=== PATIENT | male | born 1935 | race Caucasian/White ===

== ENCOUNTER 2016-08-18 06:15 | Day surgery (SDC) | payer MEDICARE, BC ==
[2016-08-13 09:41] VITALS: BMI 30.9
[~2016-08-18 06:15] MED LIST: SODIUM CHLORIDE 0.9% 1,000 ML in EMPTY BAG 1 BAG IV ONE
[2016-08-18 07:15] LABS: Basophils % (A) 1 %; CH 25.5; CHCM 31.2; Eosinophils # (A) 0.1 k/uL (0-0.7); Eosinophils % (A) 2 %; HCT 31.7 % (39.0-53.0); HDW 3.61; Hypochromasia Marked; Luc # (Auto) 0.15; Luc % (Auto) 3; Lymphocytes # (A) 1.3 k/uL (1.0-4.8); Lymphocytes % (A) 28 %; MCHC 30.4 g/dL (31.0-37.0); MCV 82.2 fL (80.0-100.0); Mean Platelet Volume 7.4; Monocytes # (A) 0.4 k/uL (0-1.0); Monocytes % (A) 8 %; Neutrophils # (A) 2.6 k/uL (1.3-7.7); Neutrophils % (A) 57 %; Poikilocytosis Slight; RBC 3.85 m/uL (4.30-5.90); RDW 15.7 % (11.5-15.5); WBC 4.6 k/uL (3.8-10.6); WBC (Perox) 4.45
[2016-08-18 07:19] LABS: HGB 9.6 gm/dL (13.0-17.5)
[2016-08-18 07:23] LABS: Calcium 9.3 mg/dL (8.4-10.2); Potassium 4.2 mmol/L (3.5-5.1)
[2016-08-18] MEDS ORDERED: MIDAZOLAM 2 MG/2 ML VIAL IVP ONE (08:09)
[2016-08-18] MEDS ORDERED: LIDOCAINE 2% INJ 20 MG/ML SQ ONE (08:17)
[2016-08-18] MEDS ORDERED: HEPARIN SODIUM 1,000 UNIT/ML VIAL IV ONE (08:21)
[2016-08-18] MEDS: MIDAZOLAM 2 MG/2 ML VIAL IVP ONE ×2 (08:26→11:09)
[2016-08-18] MEDS ORDERED: HYDROmorphone 2 MG/ML 1 ML SYRINGE IVP ONE (08:37)
[2016-08-18] MEDS: NITROGLYCERIN 1000MCG/10ML SYRINGE INTRAARTER ONE ×3 (09:28→11:10)
[2016-08-18] MEDS: niCARdipine Syringe (1,000 mcg/10 mL) INTRACORON ONE ×2 (10:30→11:10)
[2016-08-18] MEDS ORDERED: CLOPIDOGREL 75 MG TAB PO ONE (11:20)
[2016-08-18] MEDS ORDERED: IODIXANOL 320 MG/ML 100 ML INTRAARTER ONE (11:20)
[2016-08-18] MEDS ORDERED: SODIUM CHLORIDE 0.9% 1,000 ML IV SCH (11:30)
--- NOTE | 2016-08-18 12:56 | IR ---
Fluoroscopy HISTORY: Pain 68.5 minutes fluoroscopy time supplied to the referring clinician. 829 intraoperative C-arm images d ocument the procedure. See dictated report from cardiology.
[2016-08-18 16:57] VITALS: RESP 18
[2016-08-18] MEDS ORDERED: HYDROmorphone 1 MG/ML 1 ML SYRINGE IVP PRN ×2 (18:00→20:09)
[2016-08-18] MEDS: GABAPENTIN 300 MG CAP PO SCH (20:46)
[2016-08-18] MEDS: FAMOTIDINE 20 MG TAB PO SCH (20:46)
[2016-08-18] MEDS ORDERED: ASPIRIN 325 MG TAB PO SCH (21:00)
[2016-08-18] MEDS ORDERED: HYDROcodone/APAP 7.5-325MG 1 EACH TAB PO SCH (21:00)
--- NOTE | 2016-08-18 21:57 | PCN ---
DATE OF PROCEDURE: 08/18/2016 Performing physician: Alex Belcher M.D., table attendant. PROCEDURE PERFORMED: 1. Selective right superficial femoral artery angiogram. 2. Selective right popliteal angiogram. 3. 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 4. Attempted atherectomy of the right SFA artery. 5. Balloon angioplasty of the right superficial femoral artery. 6. Successful stenting of the right SFA using 5.5 x 120 and 6.0 x 100 mm Supera stent with a good angiographic results. 7. Intravascular ultrasound (IVUS) of the right SFA. INDICATION: This is a pleasant 81-year-old gentleman who was experiencing right leg discomfort consistent with intermittent claudication. He underwent a peripheral angiogram a few weeks ago and that showed occluded distal right SFA. Maximize medical treatment was recommended and the patient continues to have leg discomfort in spite of that. Finally, I decided to pursue with an intervention on the right SFA. Approach: Right popliteal artery. COMPLICATIONS: None. Level of sedation: Moderate. PROCEDURE DESCRIPTION: After obtaining an informed consent, the patient was brought to the cardiac operations label clerk. The patient was put in prone position. The right popliteal artery was accessed using micropuncture technique. After that, I did a place a 4 Wolof sheath in the right popliteal artery and subsequently and immediately anticoagulation was initiated using heparin and the patient was given 10,000 units of heparin IV. After that, I did selective right popliteal and right SFA angiogram. I attempted crossing the chronic total occlusion of the right SFA using 014 Astato wire and 018 connect wire and I was unable in spite of using back up support of 014 and 018 QuickCross catheters. After that, I decided to use the Cartwright re-entry device. The Cartwright re-entry device was loaded over the 014 Astato wire where I was able to tell where I went from intimal and then I was able to reenter the lumen again using the needle of the Cartwright device. After that, I was able to advance the wire all the way into the right SFA in the proximal portion and I did selective right SFA angiogram to prove that I was in the true lumen. Subsequently, before balloon angioplasty. I tried to advance the TurboHawk hock atherectomy device but the device will not cross the tight lesion in the right SFA just distal to the distal cap. At that point, I decided to do balloon angioplasty on that lesion, so I did advance 20 x 14 mm balloon. Then I tried 4 mm balloon and I did balloon angioplasty with both balloons. After that, I tried to advance the atherectomy device again and I was unable. At that point, I did balloon the right SFA using 5.0 x 150 mm drug-coated balloon, where the balloon was inflated under its nominal pressure for 3 minutes. The following angiogram showed good angiographic results, but I was ( ) dissection in the proximal and distal portion of the DIRECTOR DATA PROCESSING. At that point, I did intravascular ultrasound (IVUS) of the right SFA which showed dissection, which was major dissection involving the proximal and distal cap of the right SFA. At that point, I decided to cover that with a stent. I deployed 2 Supera stents, the first one was 5.5 x 120 and the second one was 6.0 x 200 mm stents. Finally, I did balloon using 6.0 x 200 mm balloon which was inflated under its nominal pressure. The following angiogram showed residual stenosis about 20% to 30% in the right SFA with a good flow and good angiographic results. The procedure was completed without any complication. POSTPROCEDURE MANAGEMENT: 1. Dual antiplatelet therapy. 2. Risk factor modifications. 3. ( ) Doppler. 4. Follow up with the patient.
--- NOTE | 2016-08-18 22:19 | LTR ---
August 18, 2016 RE: Yolandeoren Abdulkadir Airam Dear Yobani, Mr. Abdulkadir Burnette underwent successful balloon angioplasty and stenting of the right superficial femoral artery which was 100% occluded, with good angiographic results and without any complication. I want to thank you for allowing me to participate in his care. Please do not hesitate to if you have any questions or concerns. Sincerely, CARLOS WELLS MD
[2016-08-19 06:36] LABS: Basophils % (A) 0 %; CH 24.8; CHCM 29.8; Eosinophils # (A) 0.1 k/uL (0-0.7); Eosinophils % (A) 1 %; HCT 26.9 % (39.0-53.0); HDW 3.57; Hypochromasia Marked; Luc % (Auto) 4; Lymphocytes # (A) 1.4 k/uL (1.0-4.8); Lymphocytes % (A) 27 %; MCHC 29.8 g/dL (31.0-37.0); MCV 83.9 fL (80.0-100.0); Mean Platelet Volume 7.1; Monocytes # (A) 0.5 k/uL (0-1.0); Monocytes % (A) 9 %; Neutrophils # (A) 3.1 k/uL (1.3-7.7); Neutrophils % (A) 59 %; Poikilocytosis Slight; RDW 15.4 % (11.5-15.5); WBC 5.3 k/uL (3.8-10.6); WBC (Perox) 5.45
[2016-08-19 06:47] LABS: Calcium 8.8 mg/dL (8.4-10.2); Potassium 4.3 mmol/L (3.5-5.1)
[2016-08-19] MEDS ORDERED: PANTOPRAZOLE 40 MG TABLET PO SCH (07:30)
[2016-08-19] MEDS: FAMOTIDINE 20 MG TAB PO SCH (08:13)
[2016-08-19] MEDS: GABAPENTIN 300 MG CAP PO SCH (08:13)
[2016-08-19 08:22] VITALS: BP 126/58; PULSE 66; TEMP 96.1
[2016-08-19] MEDS ORDERED: ATORVASTATIN 20 MG TAB PO SCH (09:00)
[2016-08-19] MEDS ORDERED: ATENOLOL 50 MG TAB PO SCH (09:00)
[2016-08-19] MEDS ORDERED: TAMSULOSIN 0.4 MG CAP.ER.24H PO SCH ×2 (09:00)
[2016-08-19] MEDS ORDERED: CLOPIDOGREL 75 MG TAB PO SCH (09:00)
[2016-08-19] MEDS ORDERED: FUROSEMIDE 40 MG TAB PO SCH (09:00)
[2016-08-19] MEDS ORDERED: CALCIUM CARBONATE 500 MG CHEWABLE PO SCH (09:00)
--- NOTE | 2016-08-19 09:01 | DS ---
DATE OF ADMISSION: 08/18/2016 DATE OF DISCHARGE: 08/19/2016 BRIEF HISTORY: This is a pleasant 81-year-old gentleman who was admitted to the hospital yesterday and underwent successful crossing chronic total occlusion of the distal right SFA from a popliteal access. Last night he had hematoma in the right ( ) which was reduced by compression. He has a good right dorsalis pedis pulse. There is no hematoma at the site of the right popliteal artery where was the access site. The patient is going to be discharged home on dual antiplatelet therapy and I will follow up with the patient next week in the office.
[2016-08-19] MEDS ORDERED: CHOLECALCIFEROL 1,000 UNIT TAB PO SCH (12:00)
[2016-08-19] MEDS ORDERED: CYANOCOBALAMIN 500 MCG TAB PO SCH (12:00)
== END 2016-08-19 10:56 | disposition home or self-care (01) ==
LOC: CATHCVL 06:15 → 6SEL 11:15 → CATHCVL 08-19 10:56
PROVIDERS: ATTEND Internal Medicine Interventional Cardiology
DX: I70.211 Atherosclerosis of native arteries of extremities with intermittent claudication, right leg (principal); I70.92 Chronic total occlusion of artery of the extremities; I77.77 Dissection of artery of lower extremity; E78.5 Hyperlipidemia, unspecified; Z87.891 Personal history of nicotine dependence; Z79.82 Long term (current) use of aspirin; Z79.899 Other long term (current) drug therapy
CPT/HCPCS: 37226; 37252; 99157 ×11; 99156; 85347; 80048 ×2; 85025 ×2; C1894 ×2; C1769 ×9; C1725 ×3; C1887; C1714; C1753; C1876; C2623; J2001; J2250; J1170 ×2; Q9967; J1644

== ENCOUNTER 2016-11-09 20:52 | Emergency (ER) | payer MEDICARE, BC ==
[2016-11-09 21:20] VITALS: BP 105/55; PULSE 62; RESP 18; TEMP 97.7
--- NOTE | 2016-11-09 23:48 | ED ---
General Adult HPI - General Chief complaint: Recheck/Abnormal Lab/Rx Stated complaint: Abnomal Labs Time Seen by Provider: 11/09/16 23:19 Source: patient Mode of arrival: wheelchair Limitations: no limitations - History of Present Illness Initial comments: This patient is an 81-year-old man who has been having exertional dyspnea when he walks around his home. He has seen his physician in clinic. He reportedly had some lab tests sent and he states that the tests showed that he had a " blood clot in his heart." He was sent to the hospital today to have some imaging and then was told to come to the emergency department. The patient was unsure on the exact details of the tests that were performed. The patient states that he is currently not having chest pain nor is she having any dyspnea when he is at rest. He is not having fever or chills, cough, diaphoresis, nausea or vomiting. The patient does have some chronic intermittent leg edema greater on the left and right but he has had a surgery on the left. -: days(s) - Related Data Home Medications Medication Instructions Recorded Confirmed Atenolol [Tenormin] 50 mg PO DAILY 03/26/16 11/10/16 Calcium Carbonate [Calcium] 600 mg PO DAILY 03/26/16 11/10/16 Cyanocobalamin (Vitamin B-12) 2,000 mcg PO DAILY 03/26/16 11/10/16 [Vitamin B-12] Gabapentin [Neurontin] 600 mg PO BID 03/26/16 11/10/16 Lidocaine 5% Patch [Lidoderm 5% 1 patch TOPICAL DAILY 03/26/16 11/10/16 Patch] Multivitamin [Men's Multi-Vitamin] 1 tab PO DAILY 03/26/16 11/10/16 Silodosin [Rapaflo] 8 mg PO DAILY 03/26/16 11/10/16 Ammonium Lactate Lotion 1 applic TOPICAL DIRECTED PRN 08/13/16 11/10/16 [Lac-Hydrin 12% Lotion] Cholecalciferol [Vitamin D3] 1,000 unit PO DAILY 08/13/16 11/10/16 Furosemide [Lasix] 40 mg PO BID 08/13/16 11/10/16 HYDROcodone/APAP 7.5-325MG [[place] 1 tab PO BID 08/13/16 11/10/16 7.5-325] Ranitidine HCl 150 mg PO BID 08/13/16 11/10/16 Alfuzosin HCl [Uroxatral ER] 10 mg PO DAILY 11/09/16 11/10/16 Atorvastatin [Lipitor] 40 mg PO DAILY 11/09/16 11/10/16 Omeprazole [PriLOSEC] 40 mg PO DAILY 11/09/16 11/10/16 Sodium Chloride [[place]] 1 spray EA NOSTRIL DAILY PRN 11/09/16 11/10/16 Previous Rx's Medication Instructions Recorded Clopidogrel [Plavix] 75 mg PO DAILY #90 tab 08/19/16 Aspirin 81 mg PO DAILY #1 chewable 11/12/16 Allergies Allergy/AdvReac Type Severity Reaction Status Date / Time No Known Allergies Allergy Verified 11/10/16 14:53 Review of Systems ROS Statement: Those systems with pertinent positive or pertinent negative responses have been documented in the HPI. ROS Other: All systems not noted in ROS Statement are negative. Constitutional: Denies: fever, chills Respiratory: Denies: cough, dyspnea, hemoptysis Cardiovascular: Reports: dyspnea on exertion, edema. Denies: chest pain, palpitations, orthopnea, syncope Gastrointestinal: Denies: abdominal pain, vomiting, diarrhea Genitourinary: Denies: dysuria, hematuria Musculoskeletal: Denies: back pain Skin: Denies: rash Neurological: Denies: headache, weakness, numbness Past Medical History Past Medical History: Coronary Artery Disease (CAD), Eye Disorder, Hyperlipidemia, Osteoarthritis (OA), Renal Disease, Skin Disorder, Vascular Disorder Additional Past Medical History / Comment(s): HX KIDNEY STONES. HX CECILIA GLAUCOMA. EDEMA leftLEG, FEET; ITCHING, PAIN IN LEGS, LT WORSE; HX NT IN LEGS/ FEET. PVD/PAD History of Any Multi-Drug Resistant Organisms: None Reported Past Surgical History: Coronary Bypass/CABG, Heart Catheterization With Stent, Hernia Repair, Orthopedic Surgery Additional Past Surgical History / Comment(s): 08/18/16 Stents x 2 to R SFA. Other surgical hx: QUAD CABG 1998. PTCA W/ STENTS; PTBA W/ STENTS - X7. KIDNEY STONE PROC X3. RT SHOULDER SURG. LASER SURG CECILIA EYES. NASAL FX SURG. Past Anesthesia/Blood Transfusion Reactions: No Reported Reaction Date of Last Stent Placement:: 2000 Past Psychological History: No Psychological Hx Reported Additional Psychological History / Comment(s): Pt mostly lives alone. Occasionally his lady friend stays with him. He uses no assistive devices. He drives. Smoking Status: Former smoker Past Alcohol Use History: None Reported Additional Past Alcohol Use History / Comment(s): SMOKED 40 YEARS, 1 PPD AVG, QUIT 1978 Past Drug Use History: None Reported - Past Family History Mother Family Medical History: No Reported History Additional Family Medical History / Comment(s): Mother was healthy and lived to be 94 yrs old. General Exam Limitations: no limitations General appearance: alert, in no apparent distress Head exam: Present: atraumatic, normocephalic Eye exam: Present: normal appearance. Absent: scleral icterus, conjunctival injection Neck exam: Present: normal inspection Extremities exam: Present: normal inspection, normal capillary refill, pedal edema (Patient has mild left pretibial edema.). Absent: calf tenderness Neurological exam: Present: alert Skin exam: Present: warm, dry, intact, normal color. Absent: rash Course Vital Signs 11/09/16 21:13 Temperature 97.7 F Pulse Rate 62 Respiratory 18 Rate Blood Pressure 105/55 O2 Sat by Pulse 100 Oximetry Medical Decision Making - Medical Decision Making Patient is an 81-year-old man who was here in the hospital to have imaging for what he believes was a "blood clot in his heart." The patient has become quite frustrated after she waited at the hospital number of hours. He would not agree to the full history and physical exam. I could not auscultate his heart or lungs. I attempted to piece together the patient's medical problem. It appears to me that he had seen his physician for the dyspnea on exertion, and probably had lab tests that showed an elevated d-dimer. Today at the hospital he had some renal function tests that showed a slightly elevated creatinine. There was also an order for a CT angio to rule out PE, this order was subsequent canceling the patient appears to have had a ventilation perfusion study. I have found the result of that and it was read as low probability. I did explain all this patient and suggested that we perform the full history and physical as well as some tests to further study dyspnea on exertion but the patient states that he is just going home and will follow up with his physician tomorrow. He understands that there is risk of disability or associated with this. He did agree to sign AMA. Disposition Clinical Impression: Dyspnea on exertion Disposition: Left Against Medical Advice Condition: Undetermined Referrals: Yobani Gage MD [Primary Care Provider] - 1-2 days
== END 2016-11-10 00:01 | disposition left against medical advice (07) ==
LOC: EC 20:52
DX: R06.00 Dyspnea, unspecified (principal); R60.0 Localized edema; E78.5 Hyperlipidemia, unspecified; M19.90 Unspecified osteoarthritis, unspecified site; L98.9 Disorder of the skin and subcutaneous tissue, unspecified; Z87.891 Personal history of nicotine dependence; Z79.82 Long term (current) use of aspirin; Z79.891 Long term (current) use of opiate analgesic; Z79.899 Other long term (current) drug therapy; Z87.448 Personal history of other diseases of urinary system
CPT/HCPCS: 99283

== ENCOUNTER → 2016-11-09 | Outpatient (CLI) | payer MEDICARE, BC ==
--- NOTE | 2016-11-09 20:51 | NM ---
EXAMINATION TYPE: NM pul vent and perfuse DATE OF EXAM: 11/09/2016 8:47 PM COMPARISON: NONE HISTORY: Shortness of breath TECHNIQUE: Utilizing inhalation of 71.2 mCi Tc 99m DTPA aerosol and intravenous injection of 5.3 mCi of Tc 99m MAA, ventilation and perfusion images are acquired post injection in multiple projections. FINDINGS: Normal radiotracer distribution is noted in the lungs. There is no evidence of mismatched defects. IMPRESSION: Very low probability for pulmonary embolism.
== END | disposition home or self-care (01) ==
LOC: RADCTMAIN 18:02
PROVIDERS: ATTEND Family Medicine
DX: R79.1 Abnormal coagulation profile (principal)
CPT/HCPCS: 82565; 84520; 78582; A9540; A9567

== ENCOUNTER 2016-11-10 12:07 | Inpatient (IN) | payer MEDICARE, BC ==
--- NOTE | 2016-11-10 12:25 | ED ---
General Adult HPI - General Chief complaint: Recheck/Abnormal Lab/Rx Stated complaint: Abnormal Labs Time Seen by Provider: 11/10/16 12:09 Source: patient, RN notes reviewed, old records reviewed Mode of arrival: ambulatory Limitations: no limitations - History of Present Illness Initial comments: This is a 79-year-old male ER for evaluation of weakness, weakness and decreased activity level, shortness of breath with exertion. Patient states the symptoms going on for some time. Seen by his family doctor and had outpatient lab tests of ER for evaluation. Patient was tested for elevated d- dimer and PE which was negative, patient was also found to be severely anemic, patient denies blood in his stool, denies ever having an issue of similar complaint before the patient denies chest patient was of breath abdominal pain - Related Data Home Medications Medication Instructions Recorded Confirmed Aspirin 325 mg PO HS 03/26/16 11/10/16 Atenolol [Tenormin] 50 mg PO DAILY 03/26/16 11/10/16 Calcium Carbonate [Calcium] 600 mg PO DAILY 03/26/16 11/10/16 Cyanocobalamin (Vitamin B-12) 2,000 mcg PO DAILY 03/26/16 11/10/16 [Vitamin B-12] Gabapentin [Neurontin] 600 mg PO BID 03/26/16 11/10/16 Lidocaine 5% Patch [Lidoderm 5% 1 patch TOPICAL DAILY 03/26/16 11/10/16 Patch] Multivitamin [Men's Multi-Vitamin] 1 tab PO DAILY 03/26/16 11/10/16 Silodosin [Rapaflo] 8 mg PO DAILY 03/26/16 11/10/16 Ammonium Lactate Lotion 1 applic TOPICAL DIRECTED PRN 08/13/16 11/10/16 [Lac-Hydrin 12% Lotion] Cholecalciferol [Vitamin D3] 1,000 unit PO DAILY 08/13/16 11/10/16 Furosemide [Lasix] 40 mg PO BID 08/13/16 11/10/16 HYDROcodone/APAP 7.5-325MG [[place] 1 tab PO BID 08/13/16 11/10/16 7.5-325] Ranitidine HCl 150 mg PO BID 08/13/16 11/10/16 Alfuzosin HCl [Uroxatral ER] 10 mg PO DAILY 11/09/16 11/10/16 Atorvastatin [Lipitor] 40 mg PO DAILY 11/09/16 11/10/16 Omeprazole [PriLOSEC] 40 mg PO DAILY 11/09/16 11/10/16 Sodium Chloride [[place]] 1 spray EA NOSTRIL DAILY PRN 11/09/16 11/10/16 Previous Rx's Medication Instructions Recorded Clopidogrel [Plavix] 75 mg PO DAILY #90 tab 08/19/16 Allergies Allergy/AdvReac Type Severity Reaction Status Date / Time No Known Allergies Allergy Verified 11/10/16 14:53 Review of Systems ROS Statement: Those systems with pertinent positive or pertinent negative responses have been documented in the HPI. ROS Other: All systems not noted in ROS Statement are negative. Past Medical History Past Medical History: Coronary Artery Disease (CAD), Eye Disorder, Hyperlipidemia, Osteoarthritis (OA), Renal Disease, Skin Disorder, Vascular Disorder Additional Past Medical History / Comment(s): HX KIDNEY STONES. HX CECILIA GLAUCOMA. EDEMA leftLEG, FEET; ITCHING, PAIN IN LEGS, LT WORSE; HX NT IN LEGS/ FEET. PVD/PAD History of Any Multi-Drug Resistant Organisms: None Reported Past Surgical History: Coronary Bypass/CABG, Heart Catheterization With Stent, Hernia Repair, Orthopedic Surgery Additional Past Surgical History / Comment(s): 08/18/16 Stents x 2 to R SFA. Other surgical hx: QUAD CABG 1998. PTCA W/ STENTS; PTBA W/ STENTS - X7. KIDNEY STONE PROC X3. RT SHOULDER SURG. LASER SURG CECILIA EYES. NASAL FX SURG. Past Anesthesia/Blood Transfusion Reactions: No Reported Reaction Date of Last Stent Placement:: 2000 Past Psychological History: No Psychological Hx Reported Additional Psychological History / Comment(s): Pt mostly lives alone. Occasionally his lady friend stays with him. He uses no assistive devices. He drives. Smoking Status: Former smoker Past Alcohol Use History: None Reported Additional Past Alcohol Use History / Comment(s): SMOKED 40 YEARS, 1 PPD AVG, QUIT 1978 Past Drug Use History: None Reported - Past Family History Mother Family Medical History: No Reported History Additional Family Medical History / Comment(s): Mother was healthy and lived to be 94 yrs old. General Exam Limitations: no limitations General appearance: alert, in no apparent distress Head exam: Present: atraumatic, normocephalic, normal inspection Eye exam: Present: normal appearance, PERRL, EOMI. Absent: scleral icterus, conjunctival injection, periorbital swelling ENT exam: Present: normal exam, mucous membranes moist Neck exam: Present: normal inspection. Absent: tenderness, meningismus, lymphadenopathy Respiratory exam: Present: normal lung sounds bilaterally. Absent: respiratory distress, wheezes, rales, rhonchi, stridor Cardiovascular Exam: Present: regular rate, normal rhythm, normal heart sounds. Absent: systolic murmur, diastolic murmur, rubs, gallop, clicks GI/Abdominal exam: Present: soft, normal bowel sounds. Absent: distended, tenderness, guarding, rebound, rigid Extremities exam: Present: normal inspection, full ROM, normal capillary refill. Absent: tenderness, pedal edema, joint swelling, calf tenderness Back exam: Present: normal inspection Neurological exam: Present: alert, oriented X3, CN II-XII intact Psychiatric exam: Present: normal affect, normal mood Skin exam: Present: warm, dry, intact, normal color. Absent: rash Course Vital Signs 11/10/16 11/10/16 12:09 13:00 Temperature 98.3 F Pulse Rate 81 104 H Respiratory 18 20 Rate Blood Pressure 129/58 130/98 O2 Sat by Pulse 99 98 Oximetry - Reevaluation(s) Reevaluation #1: 11/10/16 12:25 [facility] ER visit reviewed and prior imaging has been reviewed EKG Findings - EKG Comments: EKG Findings:: EKG shows normal sinus rhythm rate of 80, [place] 144, QRS 88, QTC 445 Medical Decision Making - Medical Decision Making Ateliotic ER for evaluation of weakness and is of breath and dyspnea. Generalized weakness, found to be severely anemic hemoglobin of 6, patient be made for transfusion and evaluation of cause - Lab Data Result diagrams: 11/10/16 12:40 11/10/16 12:40 Lab Results 11/10/16 11/10/16 11/10/16 Range/Units 12:40 12:40 12:40 WBC 4.4 (3.8-10.6) k/uL RBC 2.87 L (4.30-5.90) m/uL Hgb 5.9 L* (13.0-17.5) gm/dL Hct 20.6 L (39.0-53.0) % MCV 71.7 L (80.0-100.0) fL MCH 20.6 L (25.0-35.0) pg MCHC 28.7 L (31.0-37.0) g/dL RDW 16.0 H (11.5-15.5) % Plt Count 231 (150-450) k/uL Neutrophils % 64 % Lymphocytes % 25 % Monocytes % 7 % Eosinophils % 1 % Basophils % 1 % Neutrophils # 2.8 (1.3-7.7) k/uL Lymphocytes # 1.1 (1.0-4.8) k/uL Monocytes # 0.3 (0-1.0) k/uL Eosinophils # 0.0 (0-0.7) k/uL Basophils # 0.0 (0-0.2) k/uL Hypochromasia Marked Poikilocytosis Moderate Microcytosis Moderate PT (9.0-12.0) sec INR (<1.1) APTT (22.0-30.0) sec Sodium 140 (137-145) mmol/L Potassium 3.9 (3.5-5.1) mmol/L Chloride 104 (98-107) mmol/L Carbon Dioxide 23 (22-30) mmol/L Anion Gap 13 mmol/L BUN 20 (9-20) mg/dL Creatinine 1.62 H (0.66-1.25) mg/dL Est GFR (MDRD) Af Amer 50 (>60 ml/min/1.73 sqM) Est GFR (MDRD) Non-Af 41 (>60 ml/min/1.73 sqM) Glucose 167 H (74-99) mg/dL Calcium 9.4 (8.4-10.2) mg/dL Magnesium 2.3 (1.6-2.3) mg/dL Total Bilirubin 0.9 (0.2-1.3) mg/dL AST 22 (17-59) U/L ALT 27 (21-72) U/L Alkaline Phosphatase 69 (38-126) U/L Total Creatine Kinase 84 (55-170) U/L CK-MB (CK-2) 0.7 (0.0-2.4) ng/mL CK-MB (CK-2) Rel Index 0.8 Troponin I <0.012 (0.000-0.034) ng/mL Total Protein 7.3 (6.3-8.2) g/dL Albumin 4.0 (3.5-5.0) g/dL Lipase 137 (23-300) U/L Blood Type Blood Type Confirm Blood Type Recheck Antibody Screen Crossmatch Spec Expiration Date 11/10/16 11/10/16 11/10/16 Range/Units 12:40 12:40 14:19 WBC (3.8-10.6) k/uL RBC (4.30-5.90) m/uL Hgb (13.0-17.5) gm/dL Hct (39.0-53.0) % MCV (80.0-100.0) fL MCH (25.0-35.0) pg MCHC (31.0-37.0) g/dL RDW (11.5-15.5) % Plt Count (150-450) k/uL Neutrophils % % Lymphocytes % % Monocytes % % Eosinophils % % Basophils % % Neutrophils # (1.3-7.7) k/uL Lymphocytes # (1.0-4.8) k/uL Monocytes # (0-1.0) k/uL Eosinophils # (0-0.7) k/uL Basophils # (0-0.2) k/uL Hypochromasia Poikilocytosis Microcytosis PT 10.9 (9.0-12.0) sec INR 1.1 (<1.1) APTT 21.5 L (22.0-30.0) sec Sodium (137-145) mmol/L Potassium (3.5-5.1) mmol/L Chloride (98-107) mmol/L Carbon Dioxide (22-30) mmol/L Anion Gap mmol/L BUN (9-20) mg/dL Creatinine (0.66-1.25) mg/dL Est GFR (MDRD) Af Amer (>60 ml/min/1.73 sqM) Est GFR (MDRD) Non-Af (>60 ml/min/1.73 sqM) Glucose (74-99) mg/dL Calcium (8.4-10.2) mg/dL Magnesium (1.6-2.3) mg/dL Total Bilirubin (0.2-1.3) mg/dL AST (17-59) U/L ALT (21-72) U/L Alkaline Phosphatase (38-126) U/L Total Creatine Kinase (55-170) U/L CK-MB (CK-2) (0.0-2.4) ng/mL CK-MB (CK-2) Rel Index Troponin I (0.000-0.034) ng/mL Total Protein (6.3-8.2) g/dL Albumin (3.5-5.0) g/dL Lipase (23-300) U/L Blood Type B Positive Blood Type Confirm B Positive Blood Type Recheck CABO Indicated Antibody Screen NEGATIVE Crossmatch See Detail Spec Expiration Date 11/13/2016 - 2347 - Radiology Data Radiology results: report reviewed (Chest x-ray is negative for acute disease), image reviewed Disposition Clinical Impression: Symptomatic anemia Disposition: ADMITTED IP TO THIS [facility] Condition: Fair Referrals: Yobani Gage MD [Primary Care Provider] - 1-2 days
[2016-11-10] MEDS ORDERED: SODIUM CHLORIDE 0.9% 1,000 ML IV STA (12:26)
[2016-11-10 13:11] LABS: Basophils % (A) 1 %; CH 19.7; CHCM 27.5; Eosinophils % (A) 1 %; HCT 20.6 % (39.0-53.0); HDW 4.37; Hypochromasia Marked; Luc # (Auto) 0.13; Luc % (Auto) 3; Lymphocytes # (A) 1.1 k/uL (1.0-4.8); Lymphocytes % (A) 25 %; MCH 20.6 pg (25.0-35.0); MCHC 28.7 g/dL (31.0-37.0); MCV 71.7 fL (80.0-100.0); Mean Platelet Volume 7.8; Microcytosis Moderate; Monocytes # (A) 0.3 k/uL (0-1.0); Monocytes % (A) 7 %; Neutrophils # (A) 2.8 k/uL (1.3-7.7); Neutrophils % (A) 64 %; Poikilocytosis Moderate; RBC 2.87 m/uL (4.30-5.90); WBC 4.4 k/uL (3.8-10.6); WBC (Perox) 4.06
[2016-11-10 13:13] LABS: INR 1.1 (<1.1); Prothrombin Time 10.9 sec (9.0-12.0)
[2016-11-10 13:14] LABS: HGB 5.9 gm/dL (13.0-17.5)
[2016-11-10 13:15] LABS: Calcium 9.4 mg/dL (8.4-10.2); Magnesium 2.3 mg/dL (1.6-2.3); Potassium 3.9 mmol/L (3.5-5.1); Total Bilirubin 0.9 mg/dL (0.2-1.3); Total Protein 7.3 g/dL (6.3-8.2)
[2016-11-10 13:19] LABS: Partial Thromboplastin Time 21.5 sec (22.0-30.0)
[2016-11-10 13:24] LABS: Creatine Kinase 84 U/L (55-170)
[2016-11-10 13:37] LABS: Creatine Kinase MB 0.7 ng/mL (0.0-2.4); Troponin I <0.012 ng/mL (0.000-0.034)
[2016-11-10] MEDS ORDERED: SODIUM CHLORIDE 0.9% 1,000 ML IV ONE (14:49)
--- NOTE | 2016-11-10 14:54 | XR ---
EXAMINATION TYPE: XR chest 2V DATE OF EXAM: 11/10/2016 2:38 PM COMPARISON: NONE HISTORY: Shortness of breath TECHNIQUE: Frontal and lateral views of the chest are obtained. FINDINGS: Scattered senescent parenchymal changes noted. Hyperinflation compatible with COPD. No evidence for infiltrate. No evidence for atelectasis. Heart size is stable. Mediastinal structures are stable and grossly unremarkable. No evidence for hilar prominence. Degenerative changes dorsal spine. IMPRESSION: 1. No evidence for acute pulmonary disease.
[2016-11-10 20:07] LABS: Anisocytosis Slight; CHCM 28.1; HCT 23.2 % (39.0-53.0); HDW 5.23; Hypochromasia Marked; MCH 21.7 pg (25.0-35.0); MCV 74.8 fL (80.0-100.0); Mean Platelet Volume 7.1; Microcytosis Slight; Poikilocytosis Marked; RDW 16.2 % (11.5-15.5); WBC 4.6 k/uL (3.8-10.6)
[2016-11-10 20:16] LABS: HGB 6.7 gm/dL (13.0-17.5)
[2016-11-10 20:25] VITALS: BMI 30.7
[2016-11-10] MEDS ORDERED: SODIUM CHLORIDE 0.65% NASAL SPRAY 44 ML BTL NASAL PRN (20:30)
[2016-11-10] MEDS ORDERED: AMMONIUM LACTATE 12% LOTION 225 GM BTL TOPICAL PRN (20:30)
[2016-11-10] MEDS ORDERED: FAMOTIDINE 20 MG TAB PO SCH (21:00)
[2016-11-10] MEDS: GABAPENTIN 300 MG CAP PO SCH (21:56)
[2016-11-10] MEDS: FUROSEMIDE 40 MG TAB PO SCH (21:56)
[2016-11-10] MEDS: HYDROcodone/APAP 7.5-325MG 1 EACH TAB PO SCH (22:42)
--- NOTE | 2016-11-10 23:46 | HP ---
DATE OF ADMISSION: 11/10/2016 PRESENTING COMPLAINT: Weak and tired. HISTORY OF PRESENTING COMPLAINT: This is a very pleasant 81-year-old patient of Dr. Gage whose chronic stable medical conditions include coronary artery disease, hyperlipidemia, osteoarthritis, kidney stones, peripheral arterial disease. The patient feels at least tired and rundown; no energy. Appetite is ( ). Some cough and phlegm. Feeling sluggish. Patient presented to the ER, found to have a hemoglobin of 5.9, and actually 2 units of blood were ordered. Patient's creatinine was found to be 1.62. It does chronically run high. Patient does not remember seeing black stools. REVIEW OF SYSTEMS: CONSTITUTIONAL: Weak and tired. HEENT: None. RESPIRATORY: Some shortness of breath. CARDIOVASCULAR: No chest pain. GASTROINTESTINAL: None. GENITOURINARY: None. MUSCULOSKELETAL: Aches and pains in the joints. DERMATOLOGIC: None. HEMATOLOGIC: None. LYMPHATICS: None. PSYCHIATRY: None. NEUROLOGICAL: None. PAST MEDICAL HISTORY: 1. Coronary artery disease. 2. Hyperlipidemia. 3. Osteoarthritis. 4. Kidney stones. 5. Peripheral arterial disease. PAST SURGICAL HISTORY: 1. Coronary artery bypass. 2. Cardiac catheterization with stent. 3. Hernia repair. 4. Stents x2 to the right SFA. 5. Quadruple bypass in 1998. 6. PTBA and PTCA. 7. Kidney stone procedures x3. 8. Right shoulder surgery. 9. Laser surgery of both eyes. SOCIAL HISTORY: Pretty lives alone. Sometimes has a lady friend. Patient smoked for 40 years, about a pack a day; stopped in 1978. Alcohol: None. FAMILY HISTORY: Mother was old; age of 99. HOME MEDICATIONS: 1. [place] 1 spray each nostril daily p.r.n. 2. Rapaflo 8 mg p.o. daily. 3. Zantac 150 mg p.o. b.i.d. 4. Prilosec 40 mg p.o. daily. 5. Multivitamin 1 tablet p.o. daily. 6. Lidocaine 5% patch daily. 7. [place] 7.5 one tablet p.o. b.i.d. 8. Neurontin 600 mg p.o. b.i.d. 9. Lasix 40 mg p.o. b.i.d. 10. Vitamin B12 2000 mcg p.o. daily. 11. Plavix 75 mg p.o. daily. 12. Vitamin D3 1000 units p.o. daily. 13. Calcium 600 mg p.o. daily. 14. Tenormin 50 mg p.o. daily. 15. Aspirin 325 p.o. at bedtime. 16. Lac-Hydrin topically at bedtime p.r.n. 17. Uroxatral ER 10 mg p.o. daily. ALLERGIES: NONE. On examination, temperature 97.5, pulse 59, respiration 16, blood pressure 109/55, pulse ox 96%. GENERAL APPEARANCE: Lying in bed, tired-appearing. EYES: Pupils equal. Conjunctivae pale. HEENT: External appearance of nose and ears normal. Oral cavity normal. NECK: JVD not raised. Mass not palpable. RESPIRATORY: Effort ( ) LUNGS: Diminished breath sounds. CARDIOVASCULAR: First and second sounds normal. No edema. ABDOMEN: Soft, nontender. Liver and spleen not palpable. LYMPHATIC: No lymph node palpable in neck or axillae. PSYCHIATRY: Alert and oriented x3. Mood and affect normal. NEUROLOGICAL: Pupils equal. Cranial nerves grossly intact. Power and sensation grossly intact. INVESTIGATIONS: White count 4.4, hemoglobin 5.9. MCV is low. Potassium 3.9. Creatinine 1.62. ASSESSMENT: 1. Acute severe microcytic anemia in a patient who takes aspirin, likely cause of his anemia. 2. Chronic kidney disease from hypertensive nephrosclerosis. 3. Coronary artery disease with prior history of stent and bypass. 4. Hyperlipidemia. 5. Primary osteoarthritis in multiple joints, bilateral. 6. Chronic nephrolithiasis. 7. Peripheral arterial disease with prior interventions. PLAN: Patient was given 2 units of blood and hemoglobin did jump up to 6.7. Still patient is feeling a bit weak and tired. Blood pressure is running on the lower side in 110s. Hence I will go ahead and give another unit of blood. GI, Dr. Akhtar, has been consulted with a view for possible EGD, colonoscopy. Other home medications will be resumed. Will consult Cardiology in view of patient being on antiplatelet agents and go from there. Care was discussed in detail with the patient.
[2016-11-11] MEDS: PANTOPRAZOLE 40 MG TABLET PO SCH (06:13)
[2016-11-11 06:25] LABS: Anisocytosis Slight; CH 22.1; HCT 26.1 % (39.0-53.0); HDW 5.45; HGB 7.6 gm/dL (13.0-17.5); Hypochromasia Marked; MCH 22.2 pg (25.0-35.0); MCHC 29.2 g/dL (31.0-37.0); MCV 76.2 fL (80.0-100.0); Mean Platelet Volume 6.4; Microcytosis Slight; Poikilocytosis Marked; RBC 3.43 m/uL (4.30-5.90); RDW 17.7 % (11.5-15.5); WBC 4.3 k/uL (3.8-10.6); WBC (Perox) 4.66
[2016-11-11 06:33] LABS: Calcium 8.9 mg/dL (8.4-10.2); Potassium 3.9 mmol/L (3.5-5.1)
[2016-11-11] MEDS: LIDOCAINE 5% PATCH TOPICAL SCH (08:27)
[2016-11-11] MEDS: MULTIVITAMINS, THERA 1 EACH TAB PO SCH (08:28)
[2016-11-11] MEDS: ATORVASTATIN 40 MG TAB PO SCH (08:28)
[2016-11-11] MEDS: FUROSEMIDE 40 MG TAB PO SCH ×2 (08:28→16:17)
[2016-11-11] MEDS: CYANOCOBALAMIN 500 MCG TAB PO SCH (08:28)
[2016-11-11] MEDS: TAMSULOSIN 0.4 MG CAP.ER.24H PO SCH (08:28)
[2016-11-11] MEDS: CHOLECALCIFEROL 1,000 UNIT TAB PO SCH (08:28)
[2016-11-11] MEDS: GABAPENTIN 300 MG CAP PO SCH (08:28)
[2016-11-11] MEDS: CALCIUM CARBONATE 500 MG CHEWABLE PO SCH (08:28)
[2016-11-11] MEDS: ATENOLOL 50 MG TAB PO SCH (08:29)
--- NOTE | 2016-11-11 08:36 | P.CONS ---
History of Present Illness - Reason for Consult Consult date: 11/11/16 anemia Requesting physician: Andrade Julio - History of Present Illness 81-year-old gentleman patient Dr. Gage with a past medical history of abdominal aortic graft/stent, peripheral vascular disease with PCI stent, CAD/ CABG, hyperlipidemia, renal disease, and osteoarthritis. Patient presents with weakness fatigue over the last few weeks. Hemoglobin 5.9. MCV 71.7. Platelet 231. INR 1.1. BUN 20 creatinine 1.6. He received 2 units of blood current hemoglobin 7.6. No history of anemia or GI bleeding. Patient is on aspirin and Plavix recent percutaneous intervention to the lower extremity in August 2016. Denies overt bleeding such as hematemesis hematochezia or melena. Denies fever chills weight loss. Stool occult blood negative. Upon review of medical records hemoglobin was between 11-12 range March/ May 2016. Hemoglobin was 8 in August 2016. Patient thinks he may have had an EGD in the past but is unsure his last colonoscopy was performed at [facility] about 3-4 years ago and to his memory and a few polyps were removed. Pulmonary perfusion scan very low probability for PE. Review of Systems Constitutional: Denies fever, chills, sweats, weight gain, or loss. HEENT: Negative for migraines, history of glaucoma history of glaucoma, earaches , drainage, tinnitus, oral mucosal lesions, dysphagia, or odynophagia. Cardiac: Hyperlipidemia. Peripheral vascular disease. Abdominal Aortic graft. Negative for chest pain, arrhythmias, or palpitation. Respiratory: Negative for shortness of breath, hemoptysis, cough, or sputum production. Gastrointestinal: See HPI for pertinent findings. Genitourinary: History of kidney stones. Negative for hematuria, urgency, frequency, polyuria, dysuria, or penile discharge. Musculoskeletal: Negative for muscle aches, swelling, arthritis, and arthralgias. Neurologic: Negative for stroke or TIA. Endocrine: Negative for thyroid problems. Nephrology: History of renal disease Skin: Negative for rash or itching. Psychiatric: Negative history for depression and anxiety Past Medical History Past Medical History: Coronary Artery Disease (CAD), Eye Disorder, Hyperlipidemia, Osteoarthritis (OA), Renal Disease, Skin Disorder, Vascular Disorder Additional Past Medical History / Comment(s): HX KIDNEY STONES. HX CECILIA GLAUCOMA. EDEMA leftLEG, FEET; ITCHING, PAIN IN LEGS, LT WORSE; HX NT IN LEGS/ FEET. PVD/PAD History of Any Multi-Drug Resistant Organisms: None Reported Past Surgical History: Coronary Bypass/CABG, Heart Catheterization With Stent, Hernia Repair, Orthopedic Surgery Additional Past Surgical History / Comment(s): 08/18/16 Stents x 2 to R SFA. Other surgical hx: QUAD CABG 1998. PTCA W/ STENTS; PTBA W/ STENTS - X10. KIDNEY STONE PROC X3. RT SHOULDER SURG. LASER SURG CECILIA EYES. NASAL FX SURG. Past Anesthesia/Blood Transfusion Reactions: No Reported Reaction Date of Last Stent Placement:: 2000 Past Psychological History: No Psychological Hx Reported Additional Psychological History / Comment(s): Pt mostly lives alone. Occasionally his lady friend stays with him. He uses no assistive devices. He drives. Smoking Status: Former smoker Past Alcohol Use History: None Reported Additional Past Alcohol Use History / Comment(s): SMOKED 40 YEARS, 1 PPD AVG, QUIT 1978 Past Drug Use History: None Reported - Past Family History Mother Family Medical History: No Reported History Additional Family Medical History / Comment(s): Mother was healthy and lived to be 94 yrs old. Father Family Medical History: No Reported History Sister(s) Additional Family Medical History / Comment(s): during heart surgery Brother(s) Additional Family Medical History / Comment(s): during heart surgery Medications and Allergies Home Medications Medication Instructions Recorded Confirmed Type Aspirin 325 mg PO HS 03/26/16 11/10/16 History Atenolol [Tenormin] 50 mg PO DAILY 03/26/16 11/10/16 History Calcium Carbonate [Calcium] 600 mg PO DAILY 03/26/16 11/10/16 History Cyanocobalamin (Vitamin B-12) 2,000 mcg PO DAILY 03/26/16 11/10/16 History [Vitamin B-12] Gabapentin [Neurontin] 600 mg PO BID 03/26/16 11/10/16 History Lidocaine 5% Patch [Lidoderm 5% 1 patch TOPICAL DAILY 03/26/16 11/10/16 History Patch] Multivitamin [Men's Multi-Vitamin] 1 tab PO DAILY 03/26/16 11/10/16 History Silodosin [Rapaflo] 8 mg PO DAILY 03/26/16 11/10/16 History Ammonium Lactate Lotion 1 applic TOPICAL DIRECTED PRN 08/13/16 11/10/16 History [Lac-Hydrin 12% Lotion] Cholecalciferol [Vitamin D3] 1,000 unit PO DAILY 08/13/16 11/10/16 History Furosemide [Lasix] 40 mg PO BID 08/13/16 11/10/16 History HYDROcodone/APAP 7.5-325MG [[place] 1 tab PO BID 08/13/16 11/10/16 History 7.5-325] Ranitidine HCl 150 mg PO BID 08/13/16 11/10/16 History Alfuzosin HCl [Uroxatral ER] 10 mg PO DAILY 11/09/16 11/10/16 History Atorvastatin [Lipitor] 40 mg PO DAILY 11/09/16 11/10/16 History Omeprazole [PriLOSEC] 40 mg PO DAILY 11/09/16 11/10/16 History Sodium Chloride [[place]] 1 spray EA NOSTRIL DAILY PRN 11/09/16 11/10/16 History Allergies Allergy/AdvReac Type Severity Reaction Status Date / Time No Known Allergies Allergy Verified 11/10/16 14:53 Physical Exam Vitals: Vital Signs Temp Pulse Pulse Resp BP BP Pulse Ox 11/11/16 04:00 97.6 F 62 16 111/56 97 11/11/16 01:32 97.9 F 63 16 113/57 11/11/16 00:00 78 18 113/52 95 11/10/16 23:20 97.3 F L 67 16 131/65 11/10/16 22:44 63 16 112/56 97 11/10/16 22:43 97.5 F L 69 16 109/55 96 11/10/16 22:33 97.5 F L 63 16 112/56 97 11/10/16 20:00 97.4 F L 65 16 122/65 95 11/10/16 17:45 98.0 F 90 20 136/72 100 11/10/16 16:15 98.0 F 68 18 134/65 99 11/10/16 15:45 97.8 F 67 18 124/76 99 11/10/16 15:35 97.8 F 66 18 118/63 Intake and Output 11/10/16 11/11/16 11/11/16 22:59 06:59 14:59 Intake Total 310 1620 540 Balance 310 1620 540 Intake: Intake, IV Titration 800 Amount Sodium Chloride 0.9% 1, 800 000 ml @ 100 mls/hr IV . Q10H ONE Rx#:[id number] Oral 200 540 Blood Product 310 620 Rc As-1 Unit 0 310 [id number] Rc As-1 Unit 310 [id number] Other: # Voids 0 5 Weight 81.193 kg General appearance: The patient is alert, oriented, in no acute distress. HET: Head is normocephalic and atraumatic. Pupils are equal and reactive. Oropharynx is clear without lesions. Neck: Supple without lymphadenopathy. Trachea midline. Heart: S1 S2. Regular rate and rhythm. Lungs: No crackles or wheezes are heard. Abdomen: Soft, nontender, nondistended with bowel sounds. No peritoneal signs. No palpable organomegaly or masses. Extremities: Normal skin color and turgor. No cyanosis, rash, ulceration, clubbing, or edema. Radial and pedal pulses are 2/4 bilaterally. Neurological: No focal deficits. Strength and sensation are grossly intact. Results CBC & Chem 7: 11/11/16 05:42 11/11/16 05:40 Labs: Abnormal Lab Results - Last 24 Hours (Table) 11/10/16 11/11/16 11/11/16 Range/Units 19:49 05:40 05:42 RBC 3.10 L 3.43 L (4.30-5.90) m/uL Hgb 6.7 L* 7.6 L (13.0-17.5) gm/dL Hct 23.2 L 26.1 L (39.0-53.0) % MCV 74.8 L 76.2 L (80.0-100.0) fL MCH 21.7 L 22.2 L (25.0-35.0) pg MCHC 29.0 L 29.2 L (31.0-37.0) g/dL RDW 16.2 H 17.7 H (11.5-15.5) % Chloride 109 H (98-107) mmol/L Creatinine 1.50 H (0.66-1.25) mg/dL Glucose 101 H (74-99) mg/dL Assessment and Plan (1) Microcytic anemia Narrative/Plan: Suspected iron deficiency anemia suggestive of occult GI blood loss. Other differentials to keep in mind is possibly aorto-enteric fistula causing a chronic slow blood loss. Status: Acute (2) Symptomatic anemia Status: Acute (3) PVD (peripheral vascular disease) with claudication Narrative/Plan: History of abdominal aortic graft stent with history of vascular PCI/stent procedure. Status: Chronic Plan: 1. Recommend EGD colonoscopy evaluation as it has been at least 3-4 years since his last colonoscopy and patient is unsure if he's had an EGD. Obtain colonosocpy report for [facility] and place on chart for review. 2. Continue to monitor CBC closely. 3. Aspirin and Plavix have been discontinued. 4. We'll continue to follow with you. The windows security analyst has discussed the risks, benefits and alternative therapies for the above-mentioned procedure and for both sedation/analgesia as well as necessary blood product administration, if indicated, as they pertain to this patient. The patient has indicated understanding and acceptance of the risks and procedures discussed. Thank you for this kind referral and the opportunity to participate in the care of your patient. This consultation was discussed with Dr. Akhtar. The impression and plan of care have been directed as dictated.
[2016-11-11] MEDS: HYDROcodone/APAP 7.5-325MG 1 EACH TAB PO SCH (08:41)
[2016-11-11] MEDS ORDERED: ALFUZOSIN HCL 10 MG PO SCH (09:00)
[2016-11-11] MEDS ORDERED: CLOPIDOGREL 75 MG TAB PO SCH (09:00)
[2016-11-11 09:21] VITALS: RESP 18
--- NOTE | 2016-11-11 10:44 | P.CRDCN ---
History of Present Illness Consult date: 11/11/16 Requesting physician: Andrade Julio Reason for Consult (text): Patient on aspirin and Plavix Chief complaint: Weakness and shortness of breath History of present illness: This is a pleasant 81-year-old gentleman with known history of coronary artery disease with prior bypass in 1999, prior aortic grafting, hypertension, hyperlipidemia, renal disease, family history of premature coronary artery disease, PAD with prior stenting of the right SFA in August of this year, who presented to the hospital with symptoms of progressive weakness and associated shortness of breath. Patient had gone to see his primary care doctor, VQ scan performed as an outpatient which revealed low probability for pulmonary embolism. He also had outpatient lab workup performed , which revealed low hemoglobin and patient was referred to come to the emergency room for admission. Hemoglobin on admission 5.9, platelet count 231, WBC normal. Potassium 3.9, BUN 20, creatinine 1.6. Magnesium 2.3, troponin 0.012. Patient denies any black stool, no blood in his stool, no hemoptysis, denies hematuria. Patient was seen by GI service and recommended to undergo EGD and colonoscopy evaluation. Aspirin and Plavix were discontinued in the emergency room. Patient did just recently a stent placed in August. He did have a dose of aspirin and Plavix yesterday. Past Medical History Past Medical History: Coronary Artery Disease (CAD), Eye Disorder, Hyperlipidemia, Osteoarthritis (OA), Renal Disease, Skin Disorder, Vascular Disorder Additional Past Medical History / Comment(s): HX KIDNEY STONES. HX CECILIA GLAUCOMA. EDEMA leftLEG, FEET; ITCHING, PAIN IN LEGS, LT WORSE; HX NT IN LEGS/ FEET. PVD/PAD History of Any Multi-Drug Resistant Organisms: None Reported Past Surgical History: Coronary Bypass/CABG, Heart Catheterization With Stent, Hernia Repair, Orthopedic Surgery Additional Past Surgical History / Comment(s): 08/18/16 Stents x 2 to R SFA. Other surgical hx: QUAD CABG 1998. PTCA W/ STENTS; PTBA W/ STENTS - X10. KIDNEY STONE PROC X3. RT SHOULDER SURG. LASER SURG CECILIA EYES. NASAL FX SURG. Past Anesthesia/Blood Transfusion Reactions: No Reported Reaction Date of Last Stent Placement:: 2000 Past Psychological History: No Psychological Hx Reported Additional Psychological History / Comment(s): Pt mostly lives alone. Occasionally his lady friend stays with him. He uses no assistive devices. He drives. Smoking Status: Former smoker Past Alcohol Use History: None Reported Additional Past Alcohol Use History / Comment(s): SMOKED 40 YEARS, 1 PPD AVG, QUIT 1978 Past Drug Use History: None Reported - Past Family History Mother Family Medical History: No Reported History Additional Family Medical History / Comment(s): Mother was healthy and lived to be 94 yrs old. Father Family Medical History: No Reported History Sister(s) Additional Family Medical History / Comment(s): during heart surgery Brother(s) Additional Family Medical History / Comment(s): during heart surgery Medications and Allergies Home Medications Medication Instructions Recorded Confirmed Type Aspirin 325 mg PO HS 03/26/16 11/10/16 History Atenolol [Tenormin] 50 mg PO DAILY 03/26/16 11/10/16 History Calcium Carbonate [Calcium] 600 mg PO DAILY 03/26/16 11/10/16 History Cyanocobalamin (Vitamin B-12) 2,000 mcg PO DAILY 03/26/16 11/10/16 History [Vitamin B-12] Gabapentin [Neurontin] 600 mg PO BID 03/26/16 11/10/16 History Lidocaine 5% Patch [Lidoderm 5% 1 patch TOPICAL DAILY 03/26/16 11/10/16 History Patch] Multivitamin [Men's Multi-Vitamin] 1 tab PO DAILY 03/26/16 11/10/16 History Silodosin [Rapaflo] 8 mg PO DAILY 03/26/16 11/10/16 History Ammonium Lactate Lotion 1 applic TOPICAL DIRECTED PRN 08/13/16 11/10/16 History [Lac-Hydrin 12% Lotion] Cholecalciferol [Vitamin D3] 1,000 unit PO DAILY 08/13/16 11/10/16 History Furosemide [Lasix] 40 mg PO BID 08/13/16 11/10/16 History HYDROcodone/APAP 7.5-325MG [[place] 1 tab PO BID 08/13/16 11/10/16 History 7.5-325] Ranitidine HCl 150 mg PO BID 08/13/16 11/10/16 History Alfuzosin HCl [Uroxatral ER] 10 mg PO DAILY 11/09/16 11/10/16 History Atorvastatin [Lipitor] 40 mg PO DAILY 11/09/16 11/10/16 History Omeprazole [PriLOSEC] 40 mg PO DAILY 11/09/16 11/10/16 History Sodium Chloride [[place]] 1 spray EA NOSTRIL DAILY PRN 11/09/16 11/10/16 History Allergies Allergy/AdvReac Type Severity Reaction Status Date / Time No Known Allergies Allergy Verified 11/10/16 14:53 Physical Exam Vitals: Vital Signs Temp Pulse Pulse Resp BP BP Pulse Ox 11/11/16 08:00 98.0 F 59 L 18 134/60 97 11/11/16 04:00 97.6 F 62 16 111/56 97 11/11/16 01:32 97.9 F 63 16 113/57 11/11/16 00:00 78 18 113/52 95 11/10/16 23:20 97.3 F L 67 16 131/65 11/10/16 22:44 63 16 112/56 97 11/10/16 22:43 97.5 F L 69 16 109/55 96 11/10/16 22:33 97.5 F L 63 16 112/56 97 11/10/16 20:00 97.4 F L 65 16 122/65 95 11/10/16 17:45 98.0 F 90 20 136/72 100 11/10/16 16:15 98.0 F 68 18 134/65 99 11/10/16 15:45 97.8 F 67 18 124/76 99 11/10/16 15:35 97.8 F 66 18 118/63 Intake and Output 11/10/16 11/11/16 11/11/16 22:59 06:59 14:59 Intake Total 310 1620 540 Balance 310 1620 540 Intake: Intake, IV Titration 800 Amount Sodium Chloride 0.9% 1, 800 000 ml @ 100 mls/hr IV . Q10H ONE Rx#:[id number] Oral 200 540 Blood Product 310 620 Rc As-1 Unit 0 310 [id number] Rc As-1 Unit 310 [id number] Other: # Voids 0 5 Weight 81.193 kg 80.1 kg PHYSICAL EXAMINATION: 81-year-old male, pale in color. HEENT: Head is atraumatic, normocephalic. Pupils equal, round. Neck is supple. There is no elevated jugular venous pressure. HEART EXAMINATION: Heart S1, S2 normal. No murmur or gallop heard. CHEST EXAMINATION: Lungs are clear to auscultation and precussion. No chest wall tenderness is noted on palpation or with deep breathing. ABDOMEN: Soft, nontender. Bowel sounds are heard. No organomegaly noted. EXTREMITIES: 2+ peripheral pulses with no evidence of peripheral edema and no calf tenderness noted. NEUROLOGIC patient is awake, alert and oriented -3. . Results 11/11/16 05:42 11/11/16 05:40 CBC 11/10/16 11/11/16 Range/Units 19:49 05:42 WBC 4.6 4.3 (3.8-10.6) k/uL RBC 3.10 L 3.43 L (4.30-5.90) m/uL Hgb 6.7 L* 7.6 L (13.0-17.5) gm/dL Hct 23.2 L 26.1 L (39.0-53.0) % Plt Count 220 203 (150-450) k/uL Comprehensive Metabolic Panel 11/11/16 Range/Units 05:40 Sodium 142 (137-145) mmol/L Potassium 3.9 (3.5-5.1) mmol/L Chloride 109 H (98-107) mmol/L Carbon Dioxide 26 (22-30) mmol/L BUN 15 (9-20) mg/dL Creatinine 1.50 H (0.66-1.25) mg/dL Glucose 101 H (74-99) mg/dL Calcium 8.9 (8.4-10.2) mg/dL Current Medications Generic Name Dose Route Start Last Admin Trade Name Yungq PRN Reason Stop Dose Admin Hydrocodone Bitart/Acetaminophen 1 each 11/10/16 21:00 11/11/16 08:41 [place] 7.5-325 PO 1 each BID BARBARA Administration Atenolol 50 mg 11/11/16 09:00 11/11/16 08:29 Tenormin PO 50 mg DAILY BARBARA Administration Atorvastatin Calcium 40 mg 11/11/16 09:00 11/11/16 08:28 Lipitor PO 40 mg DAILY BARBARA Administration Calcium Carbonate/Glycine 500 mg 11/11/16 12:00 11/11/16 08:28 Tums PO 500 mg 1200 BARBARA Administration Cholecalciferol 1,000 unit 11/11/16 12:00 11/11/16 08:28 Vitamin D3 PO 1,000 unit 1200 BARBARA Administration Cyanocobalamin 2,000 mcg 11/11/16 12:00 11/11/16 08:28 Vitamin B-12 PO 2,000 mcg 1200 BARBARA Administration Famotidine 20 mg 11/10/16 21:00 11/10/16 21:56 Pepcid PO 20 mg HS BARBARA Administration Furosemide 40 mg 11/10/16 21:00 11/11/16 08:28 Lasix PO 40 mg BID@0900,1600 BARBARA Administration Gabapentin 600 mg 11/10/16 21:00 11/11/16 08:28 Neurontin PO 600 mg BID BARBARA Administration Lactic Acid 1 applic 11/10/16 20:30 Lac-Hydrin 12% TOPICAL DIRECTED PRN Itching Lidocaine 1 patch 11/11/16 09:00 11/11/16 08:27 Lidoderm TOPICAL 1 patch DAILY BARBARA Administration Multivitamins 1 each 11/11/16 12:00 11/11/16 08:28 Theragran PO 1 each 1200 BARBARA Administration Pantoprazole Sodium 40 mg 11/11/16 07:30 11/11/16 06:13 Protonix PO 40 mg [id number]-[id number] BARBARA Administration Polyethylene Glycol/Electrolytes 4,000 ml 11/11/16 17:00 Golytely Lavage PO 11/11/16 17:01 ONCE ONE Sodium Chloride 1 spray 11/10/16 20:30 [place] NASAL DAILY PRN DRY NOSE Tamsulosin HCl 0.8 mg 11/11/16 09:00 11/11/16 08:28 Flomax PO 0.8 mg DAILY BARBARA Administration Intake and Output 11/10/16 11/11/16 11/11/16 22:59 06:59 14:59 Intake Total 310 1620 540 Balance 310 1620 540 Intake: Intake, IV Titration 800 Amount Sodium Chloride 0.9% 1, 800 000 ml @ 100 mls/hr IV . Q10H ONE Rx#:[id number] Oral 200 540 Blood Product 310 620 Rc As-1 Unit 0 310 [id number] Rc As-1 Unit 310 [id number] Other: # Voids 0 5 Weight 81.193 kg 80.1 kg 11/11/16 05:42 11/11/16 05:40 EKG Interpretations (text) EKG shows a normal sinus rhythm with anterior lateral ST depression noted. Assessment and Plan Plan: Assessment and plan #1 anemia, globin 5.9 on admission, status post transfusion of 2 units packed red blood cells, hemoglobin 7.6 this morning. #2 recent SFA stenting in August of this year on aspirin and Plavix at home #3 known history of coronary artery disease with prior bypass surgery #4 PAD with prior aortic grafting peripheral stenting # 5 hypertension #6 hyperlipidemia #7 acute on chronic renal disease Plan Patient's Plavix and aspirin were discontinued in the emergency room, this is a patient at high risk for acute stent closure, we would recommend to at least keep the patient on a full aspirin at this time. Patient was seen by GI service and will be scheduled to undergo an EGD and colonoscopy. We will continue to follow along with you. DNP note has been reviewed, I agree with a documented findings and plan of care. Patient was seen and examined.
--- NOTE | 2016-11-11 11:03 | CDI ---
In responding to this query, please exercise your independent professional judgment. The [facility] Coding Staff and Clinical Documentation Specialists appreciate your assistance in clarifying documentation, maintaining compliance with coding guidelines, accurately documenting patients condition and capturing severity of illness. The fact that a question is asked does not imply that any particular answer is desired or expected. Communication forms are a method of clarifying documentation and are not made part of the Legal Health Record. Thank you in advance for your clarification. Last Revision, May 2015 Yulia Buen[address]ro [address] [place] [address] Documentation Clarification Form Date: 11/11/2016 10:49:00 AM From: Michelle Christianson RN, CDS Admit Date: 11/10/2016 2:49:00 PM Patient Name: Abdulkadir Burnette Visit Number: [id number] Dr. 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 Include clinical findings that support your diagnosis. FYI: Press F11 to launch patient chart. Place X here if this finding has no clinical significance, is not applicable or if you are not able to provide any additional documentation. GERRY
[2016-11-11 11:04] LABS: Add Differential Manual Differential
[2016-11-11 11:06] LABS: Nucleated Red Blood Cells 0 /100 WBC (0-0); Total Cells Counted 100
[2016-11-11 11:07] LABS: Polychromasia Present
--- NOTE | 2016-11-11 12:49 | CDI ---
In responding to this query, please exercise your independent professional judgment. The [facility] Coding Staff and Clinical Documentation Specialists appreciate your assistance in clarifying documentation, maintaining compliance with coding guidelines, accurately documenting patients condition and capturing severity of illness. The fact that a question is asked does not imply that any particular answer is desired or expected. Communication forms are a method of clarifying documentation and are not made part of the Legal Health Record. Thank you in advance for your clarification. Last Revision, May 2015 Yulia [place] [address] [place] [address] Documentation Clarification Form Date: 11/11/2016 10:49:00 AM From: Michelle Christianson RN, CDS Admit Date: 11/10/2016 2:49:00 PM Patient Name: Abdulkadir Burnette Visit Number: [id number] Dr. 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 Include clinical findings that support your diagnosis. FYI: Press F11 to launch patient chart. Place X here if this finding has no clinical significance, is not applicable or if you are not able to provide any additional documentation. GERRY
[2016-11-11] MEDS: ASPIRIN 325 MG TAB PO SCH (16:18)
[2016-11-11] MEDS ORDERED: PEG 3350-NA SULF,BICARB,CL/KCL 4,000 ML BOTTLE PO ONE (17:00)
[2016-11-11] MEDS ORDERED: ASPIRIN 325 MG TAB PO SCH (21:00)
[2016-11-12] MEDS: HYDROcodone/APAP 7.5-325MG 1 EACH TAB PO SCH ×2 (00:47→08:51)
[2016-11-12] MEDS: GABAPENTIN 300 MG CAP PO SCH ×2 (00:48→08:50)
--- NOTE | 2016-11-12 08:38 | PN ---
DATE OF SERVICE: 11/11/2016 PRESENTING COMPLAINT: Severe anemic. INTERVAL HISTORY: This patient has severe anemia, received a total of 3 units of blood. Initial hemoglobin was 5.9. Seen by Gastroenterology, due to go for EGD, colonoscopy tomorrow. Denies any dark stools. Still feels a bit weak and tired. Review of systems done for constitutional, cardiovascular, GI, pulmonary; relevant findings as above. Current medications are reviewed. The patient is on Protonix. On examination, temperature 97.8, pulse 84, respiration 18, blood pressure 119/54, pulse ox 96% on room air. GENERAL APPEARANCE: Lying in bed. EYES: Pupils equal. Conjunctivae pale. NECK: JVD not raised. Mass not palpable. RESPIRATORY: Effort normal. LUNGS: Decreased diminished breath sounds. CARDIOVASCULAR: First and second sounds normal. No edema. ABDOMEN: Soft, nontender. Liver and spleen not palpable. PSYCHIATRY: Alert and oriented x3. Mood and affect normal. INVESTIGATIONS: Hemoglobin is 7.6. BUN 15, creatinine 1.50. ASSESSMENT: 1. Acute severe macrocytic anemia in a patient who is on aspirin and Plavix, rule out cause for gastrointestinal bleed, symptomatic, has received 3 units of blood. 2. 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 3. Coronary disease with prior history of stent and bypass. 4. Hyperlipidemia. 5. Primary osteoarthritis of multiple joints, bilateral. 6. Chronic nephrolithiasis. 7. Peripheral artery disease with prior intervention last one being in August of this year. PLAN: Continue current medication and treatment plan. Keep the patient on PPI. Patient due for EGD, and colonoscopy tomorrow.
[2016-11-12] MEDS: PANTOPRAZOLE 40 MG TABLET PO SCH (08:49)
[2016-11-12] MEDS: ASPIRIN 325 MG TAB PO SCH (08:49)
[2016-11-12] MEDS: ATENOLOL 50 MG TAB PO SCH (08:50)
[2016-11-12] MEDS: CYANOCOBALAMIN 500 MCG TAB PO SCH (08:50)
[2016-11-12] MEDS: MULTIVITAMINS, THERA 1 EACH TAB PO SCH (08:50)
[2016-11-12] MEDS: CHOLECALCIFEROL 1,000 UNIT TAB PO SCH (08:50)
[2016-11-12] MEDS: CALCIUM CARBONATE 500 MG CHEWABLE PO SCH (08:50)
[2016-11-12] MEDS: FUROSEMIDE 40 MG TAB PO SCH ×2 (08:50→17:08)
[2016-11-12] MEDS: TAMSULOSIN 0.4 MG CAP.ER.24H PO SCH (08:50)
[2016-11-12] MEDS: ATORVASTATIN 40 MG TAB PO SCH (08:50)
[2016-11-12] MEDS: LIDOCAINE 5% PATCH TOPICAL SCH (08:51)
[2016-11-12] MEDS ORDERED: ASPIRIN 325 MG TAB PO SCH (09:00)
[2016-11-12 09:10] LABS: Potassium 3.6 mmol/L (3.5-5.1)
[2016-11-12 09:33] LABS: Anisocytosis Slight; Basophils % (A) 1 %; CH 22.1; CHCM 28.8; Eosinophils # (A) 0.2 k/uL (0-0.7); Eosinophils % (A) 4 %; HCT 26.7 % (39.0-53.0); HDW 5.33; HGB 7.7 gm/dL (13.0-17.5); Hypochromasia Marked; Luc # (Auto) 0.13; Luc % (Auto) 3; Lymphocytes % (A) 24 %; MCH 22.1 pg (25.0-35.0); MCHC 28.9 g/dL (31.0-37.0); MCV 76.4 fL (80.0-100.0); Mean Platelet Volume 6.8; Microcytosis Slight; Monocytes # (A) 0.3 k/uL (0-1.0); Monocytes % (A) 7 %; Neutrophils # (A) 2.5 k/uL (1.3-7.7); Neutrophils % (A) 61 %; Poikilocytosis Marked; RBC 3.49 m/uL (4.30-5.90); RDW 18.3 % (11.5-15.5); WBC 4.1 k/uL (3.8-10.6); WBC (Perox) 4.09
--- NOTE | 2016-11-12 11:53 | CDI ---
In responding to this query, please exercise your independent professional judgment. The [facility] Coding Staff and Clinical Documentation Specialists appreciate your assistance in clarifying documentation, maintaining compliance with coding guidelines, accurately documenting patients condition and capturing severity of illness. The fact that a question is asked does not imply that any particular answer is desired or expected. Communication forms are a method of clarifying documentation and are not made part of the Legal Health Record. Thank you in advance for your clarification. Last Revision, May 2015 Yulia [address] [place] [address] Documentation Clarification Form Date: 11/12/2016 11:27:00 AM From: Michelle Christianson RN, CDS Admit Date: 11/10/2016 2:49:00 PM Patient Name: Abdulkadir Burnette Visit Number: [id number] Dr. Andrade Dimas diagnosis of anemia lacks specificity to accurately reflect your patients severity of condition and clarification is needed. Patient history/risk factors: GI bleed, CAD, PAD, CKD3 Clinical Indicators: "Acute macrocytic anemia rule out gastrointestinal bleed, symptomatic" per progress note 11/11/16, Hemoglobin/Hematocrit: 5.9/20.6 on admission to ED, 7.7/26.7 on 11/12 Treatment: 3 Units Packed Red Blood Cells transfused, GI consult, EGD/ Colonoscopy scheduled for 11/12/16, In order to capture the severity of condition, please clarify the type of anemia and etiology if known: Acute blood loss anemia Acute on chronic blood loss anemia Chronic blood loss anemia Anemia of chronic kidney disease Unable to determine Other, please specify Please document in your progress notes and discharge summary in order to capture severity of illness and risk of mortality. Include clinical findings that support your diagnosis. FYI: Press F11 to launch patient chart. Place X here if this finding has no clinical significance, is not applicable or if you are not able to provide any additional documentation. MTDD
[2016-11-12] MEDS ORDERED: SODIUM CHLORIDE 0.9% 1,000 ML IV ONE (15:17)
[2016-11-12] MEDS ORDERED: LACTATED RINGERS 1,000 ML IV ONE (15:17)
[2016-11-12] MEDS ORDERED: LIDOCAINE 1% INJ 10MG/ML (20 ML MDV) ONE (15:34)
[2016-11-12] MEDS ORDERED: PROPOFOL 10 MG/ML 20 ML VIAL IV ONE (15:34)
--- NOTE | 2016-11-12 15:39 | P.PN ---
Subjective Principal diagnosis: Anemia This is a pleasant 81-year-old gentleman with known history of coronary artery disease with prior bypass in 1999, prior aortic grafting, hypertension, hyperlipidemia, renal disease, family history of premature coronary artery disease, PAD with prior stenting of the right SFA in August of this year, who presented to the hospital with symptoms of progressive weakness and associated shortness of breath. Patient had gone to see his primary care doctor, VQ scan performed as an outpatient which revealed low probability for pulmonary embolism. He also had outpatient lab workup performed , which revealed low hemoglobin and patient was referred to come to the emergency room for admission. Hemoglobin on admission 5.9, platelet count 231, WBC normal. Potassium 3.9, BUN 20, creatinine 1.6. Magnesium 2.3, troponin 0.012. Patient denies any black stool, no blood in his stool, no hemoptysis, denies hematuria. Patient was seen by GI service and recommended to undergo EGD and colonoscopy evaluation which will be performed today.. Aspirin and Plavix were discontinued in the emergency room. And a full aspirin have been resumed yesterday. hgb 7.7 today. Pressure 98/50 heart rate in the 50s. Objective - Vital Signs Vital signs: Vital Signs Temp 97.1 F L 11/12/16 12:12 Pulse 58 L 11/12/16 12:12 Resp 18 11/12/16 12:12 BP 98/50 11/12/16 12:12 Pulse Ox 91 L 11/12/16 12:12 Intake & Output 11/11/16 11/12/16 11/12/16 18:59 06:59 18:59 Intake Total 1500 120 120 Balance 1500 120 120 Weight 79.9 kg Intake: Oral 1500 120 120 Other: # Voids 2 - Exam PHYSICAL EXAMINATION: 81-year-old male, pale in color. HEENT: Head is atraumatic, normocephalic. Pupils equal, round. Neck is supple. There is no elevated jugular venous pressure. HEART EXAMINATION: Heart S1, S2 normal. No murmur or gallop heard. CHEST EXAMINATION: Lungs are clear to auscultation and precussion. No chest wall tenderness is noted on palpation or with deep breathing. ABDOMEN: Soft, nontender. Bowel sounds are heard. No organomegaly noted. EXTREMITIES: 2+ peripheral pulses with no evidence of peripheral edema and no calf tenderness noted. NEUROLOGIC patient is awake, alert and oriented -3. - Labs CBC & Chem 7: 11/12/16 08:43 11/12/16 08:43 Labs: Abnormal Lab Results - Last 24 Hours (Table) 11/12/16 11/12/16 Range/Units 08:43 08:43 RBC 3.49 L (4.30-5.90) m/uL Hgb 7.7 L (13.0-17.5) gm/dL Hct 26.7 L (39.0-53.0) % MCV 76.4 L (80.0-100.0) fL MCH 22.1 L (25.0-35.0) pg MCHC 28.9 L (31.0-37.0) g/dL RDW 18.3 H (11.5-15.5) % Chloride 108 H (98-107) mmol/L Creatinine 1.54 H (0.66-1.25) mg/dL Glucose 118 H (74-99) mg/dL Assessment and Plan Plan: Assessment and plan #1 anemia, globin 5.9 on admission, status post transfusion of 2 units packed red blood cells, hemoglobin 7.7 this morning. #2 recent SFA stenting in August of this year on aspirin and Plavix at home #3 known history of coronary artery disease with prior bypass surgery #4 PAD with prior aortic grafting peripheral stenting # 5 hypertension #6 hyperlipidemia #7 acute on chronic renal disease Plan Patient's Plavix and aspirin were discontinued in the emergency room, this is a patient at high risk for acute stent closure, are 4 aspirin was resumed yesterday.. Patient was seen by GI service and will be scheduled to undergo an EGD and colonoscopy today. We will continue to follow along with you. DNP note has been reviewed, I agree with a documented findings and plan of care. Patient was seen and examined.
[2016-11-12 16:18] VITALS: BP 113/61; PULSE 62; TEMP 96.8
--- NOTE | 2016-11-12 16:37 | P.PCN ---
Date of Procedure: 11/12/16 Procedure(s) Performed: Procedures: 1. Esophagogastroduodenoscopy and biopsy. 2. Total colonoscopy. Preoperative diagnosis: Symptomatic anemia. Postoperative diagnosis: 1. Small hiatal hernia with no obvious esophagitis or complicated reflux disease. 2. Mild antral gastritis. 3. Colon diverticulosis. Preparation: HalfLytely prep. Sedation: Was provided by anesthesia. Brief clinical history: The patient is an 81-year-old male with past medical history of abdominal aortic graft/stent, peripheral vascular disease with PCI stent, CAD/CABG, hyperlipidemia, renal disease, and osteoarthritis. He presented with weakness and fatigue over the last few weeks. Hemoglobin 5.9. MCV 71.7. Platelet 231. INR 1.1. BUN 20 creatinine 1.6. He received 2 units of blood with hemoglobin improvement to 7.6. No history of anemia or GI bleeding. Patient is on aspirin and Plavix. Had percutaneous intervention to the lower extremity in August 2016. Denies overt bleeding such as hematemesis , hematochezia or melena. Denies fever, chills or weight loss. Stool occult blood negative. His Hb was 11-12 gm in May/June 2016. Hemoglobin was 8 in August 2016. Patient unsure if he had an EGD in the past, his last colonoscopy was performed at [facility] about 3-4 years ago and to his memory few polyps were removed. The details are summarized in the history and physical and dictated consultations and progress notes. Procedure: With the patient on his left lateral decubitus position and after informed consent and adequate sedation, I passed the Olympus-GIF 160 video upper endoscope through the cricopharyngeus down the esophagus. There was a small sliding hiatal hernia but no obvious esophagitis or complicated reflux disease. The endoscope was then passed into the stomach which was insufflated with air and inspected in detail including the retroflex view in the cardia. There was some mottling and erythema in the antrum but no ulcers or erosions. Pyloric channel, duodenal bulb, post bulbar area and descending duodenum appeared within normal limits. Because of his anemia, I obtained multiple biopsies from the duodenum antrum and esophagus then the endoscope was withdrawn and I proceeded with the colonoscopy. Perianal area did not show any fissures or fistulas. There were no masses felt on digital rectal examination. The Olympus CFQ 160L video colonoscope was then inserted in the rectum in the usual fashion and advanced to the cecum. There were multiple diverticular orifices seen scattered in the sigmoid and left side and occasional diverticular orifices seen on the right side and around the hepatic flexure with no evidence of acute diverticulitis or strictures. The mucosa appeared healthy. There was no significant pathology or bleeding. I retroflexed endoscope in the rectum before the endoscope was withdrawn. The patient tolerated the procedure well. Plan: The patient was reassured. Will continue to monitor his blood counts. Consideration can be given for a capsule endoscopy depending on his course. I will discuss with you and follow with you with interest.
--- NOTE | 2016-11-14 09:03 | DS ---
DATE OF ADMISSION: 11/10/2016 DATE OF DISCHARGE: 11/12/2016 FINAL DIAGNOSES: 1. Acute severe macrocytic anemia in a patient who is on aspirin and Plavix. Exact source of bleed undetermined, symptomatic requiring blood transfusion on 3 units of blood. 2. 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 3. Coronary artery disease with prior history of stent and bypass. 4. Hyperlipidemia. 5. Osteoarthritis of multiple joints bilaterally. 6. Chronic nephrolithiasis. 7. Peripheral artery disease, prior intervention possibly in August of this year. CONSULTATION: Dr. Akhtar from GI. Dr. Anton from cardiology. HOSPITAL COURSE: This patient presented weak, tired, with a hemoglobin of 5.9, transfused 2 units of blood. Hemoglobin did come up to 7.7. Patient did undergo an EGD and colonoscopy by Dr. Akhtar. Found to have small hiatal hernia, mild antral gastritis and colon diverticulosis. It is possible the patient might have had some bleeding from the small bowel. Patient hemodynamically stable at the time of discharge. No dizziness. Last hemoglobin 7.7, creatinine is 1.54. The patient ( ) follow with Dr. Akhtar in the office. Keep an eye on hemoglobin to see no further drop. DISCHARGE MEDICATIONS: 1. Tenormin 50 mg a day. 2. Calcium 600 mg a day. 3. Vitamin B12 2000 mcg a day. 4. Neurontin 600 mg p.o. b.i.d. 5. ( ) 5% patch topical daily. 6. Men's Multivitamin 1 tablet p.o. daily. 7. Rapaflo 8 mg p.o. daily. 8. Lac-Hydrin 12% one topical q.h.s. p.r.n. 9. Vitamin D3 1000 units p.o. daily. 10. Lasix 40 mg p.o. b.i.d. 11. [place] 7.5 1 tablets p.o. b.i.d. 12. Zantac 150 mg p.o. b.i.d. 13. Plavix 75 mg p.o. daily. 14. ( ) ER 10 mg p.o. daily. 15. Lipitor 40 mg daily, 16. Prilosec 40 mg p.o. daily. 17. [place] spray each nostril daily p.r.n. 18. Aspirin 81 mg p.o. daily. Follow-up with Dr. Akhtar in 10 days. Follow up with Dr. Belcher on 11/18/2016. Follow-up with Dr. Gage in 3 to 4 days. CBC in 3 to [address] Akhtar and Dr. Gage.
--- NOTE | 2016-12-09 11:02 | DS ---
DATE OF ADMISSION: 11/10/2016 DATE OF DISCHARGE: 11/12/2016 ADDENDUM: ON EXAMINATION: LUNGS: Decreased breath sounds. CARDIOVASCULAR: First and second sounds normal. PSYCH: Alert and oriented x3. Mood and affect normal.
== END 2016-11-12 18:45 | disposition home or self-care (01) | DRG 379 ==
LOC: EC 12:07 → 6SEL 14:49
PROVIDERS: ADMIT Hospitalist; ATTEND Hospitalist
PROC: 30233N1 Transfusion of Nonautologous Red Blood Cells into Peripheral Vein, Percutaneous Approach (ICD-10-PCS; 2016-11-10)
PROC: 0DB98ZX Excision of Duodenum, Via Natural or Artificial Opening Endoscopic, Diagnostic (ICD-10-PCS; 2016-11-12)
PROC: 0DJD8ZZ Inspection of Lower Intestinal Tract, Via Natural or Artificial Opening Endoscopic (ICD-10-PCS; 2016-11-12)
PROC: 0DB58ZX Excision of Esophagus, Via Natural or Artificial Opening Endoscopic, Diagnostic (ICD-10-PCS; principal; 2016-11-12 13:00)
PROC: 0DB78ZX Excision of Stomach, Pylorus, Via Natural or Artificial Opening Endoscopic, Diagnostic (ICD-10-PCS; 2016-11-12 13:00)
DX: K92.2 Gastrointestinal hemorrhage, unspecified (principal); N18.3 Chronic kidney disease, stage 3 (moderate); D53.9 Nutritional anemia, unspecified; I12.9 Hypertensive chronic kidney disease with stage 1 through stage 4 chronic kidney disease, or unspecified chronic kidney disease; D50.9 Iron deficiency anemia, unspecified; Z95.1 Presence of aortocoronary bypass graft; K29.60 Other gastritis without bleeding; K57.30 Diverticulosis of large intestine without perforation or abscess without bleeding; I25.10 Atherosclerotic heart disease of native coronary artery without angina pectoris; K44.9 Diaphragmatic hernia without obstruction or gangrene; I70.219 Atherosclerosis of native arteries of extremities with intermittent claudication, unspecified extremity; T39.015A Adverse effect of aspirin, initial encounter; E78.5 Hyperlipidemia, unspecified; H40.9 Unspecified glaucoma; M19.91 Primary osteoarthritis, unspecified site; R06.02 Shortness of breath; R05 Cough; R53.1 Weakness; N20.0 Calculus of kidney; Z79.02 Long term (current) use of antithrombotics/antiplatelets; Z79.82 Long term (current) use of aspirin; Z95.5 Presence of coronary angioplasty implant and graft; Z87.891 Personal history of nicotine dependence; Z87.442 Personal history of urinary calculi; Z79.899 Other long term (current) drug therapy; Z82.49 Family history of ischemic heart disease and other diseases of the circulatory system; Z79.891 Long term (current) use of opiate analgesic; Z86.010 Personal history of colon polyps; Z95.820 Peripheral vascular angioplasty status with implants and grafts; Z86.79 Personal history of other diseases of the circulatory system; Z87.2 Personal history of diseases of the skin and subcutaneous tissue
CPT/HCPCS: 36415; 43239; 45378; 71020; 78582; 80048; 80053; 82272; 82550; 82553; 82565; 83690; 83735; 84484; 84520; 85025; 85027; 85610; 85730; 86850; 86900; 86901; 86920; 88305; 88342; 93005; 96360; 96361; 99285

== ENCOUNTER → 2017-01-17 | Outpatient (CLI) | payer MEDICARE, BC ==
--- NOTE | 2017-01-17 15:44 | US ---
EXAMINATION TYPE: US kidneys/renal and bladder DATE OF EXAM: 01/17/2017 COMPARISON: NONE CLINICAL HISTORY: 81-year-old male N18.3 Chronic Kidney Disease Stage 3. Patient stated had prior sunil al stones with lithotripsy. TECHNIQUE: Multiple sonographic images of the kidneys and bladder were obtained. FINDINGS: Right Kidney: 9.1 x 7.0 x 6.1 cm Left Kidney: 10.3 x 5.2 x 5.8 cm No hydronephrosis on either side. There is somewhat echogenic appearance to some of the medullary pyr amids. Underlying renal calculi are difficult to entirely exclude. Initial incomplete distention of the bladder limits its evaluation. Small amount of postvoid bladder residual volume remains (10.6 ml) which falls within the normal range. Both ureteral jets are visuali zed. IMPRESSION: 1. No hydronephrosis. 2. Echogenic appearance to some of the medullary pyramids. Underlying renal calculi difficult to excl ude. 3. Small amount of residual volume in the bladder after voiding (10.6 ml) which falls within the norm al range.
== END | disposition home or self-care (01) ==
LOC: RADUSWWP 14:21
PROVIDERS: ATTEND Family Medicine
DX: N18.3 Chronic kidney disease, stage 3 (moderate) (principal)
CPT/HCPCS: 76770

== ENCOUNTER → 2017-06-13 | Outpatient (CLI) | payer MEDICARE, BC ==
--- NOTE | 2017-06-13 08:45 | MM ---
Reason for exam: clinical finding. Indicated problem(s): lump or thickening in the left breast. Physical Findings: Nurse Summary: 1cm nodule in the left breast at 8 o'clock (nurse mm). MG 3D Diag Mammo W/Cad CECILIA Bilateral CC and MLO view(s) were taken. Prior study comparison: May 12, 2017, left breast US breast LT. There are scattered fibroglandular densities. No significant gynecomastia. Palpable marker lower inner quadrant in the left breast. 4mm circumscribed nodule at the axillary tail most suggestive of a lymph node. The ultrasound is reviewed. Given the circumscribed isoechoic appearance to the 1.3cm 9 o'clock palpable mass with onion skin appearance is highly suggestive of a lipoma. We note patient is on blood thinners. 6 month follow up can be performed. These results were verbally communicated with the patient and result sheet given to the patient on 06/13/17. ASSESSMENT: Probably benign, BI-RAD 3 RECOMMENDATION: Ultrasound of the left breast in 6 months.
== END | disposition home or self-care (01) ==
LOC: RADMAMWWP 07:37
PROVIDERS: ATTEND Surgery
DX: N63.20 Unspecified lump in the left breast, unspecified quadrant (principal)
CPT/HCPCS: G0204; G0279

== ENCOUNTER 2017-08-04 13:00 | Day surgery (SDC) | payer MEDICARE, BC ==
[2017-07-28 13:56] VITALS: BMI 29.2
[~2017-08-04 13:00] MED LIST changes: +ALPRAZolam 0.25 MG TAB PO PRN; +ASPIRIN 325 MG TAB PO STA; +LIDOCAINE 2% INJ 20 MG/ML SQ ONE; +MIDAZOLAM 2 MG/2 ML VIAL IV ONE
[2017-08-04] MEDS ORDERED: SODIUM CHLORIDE 0.9% 1,000 ML IV SCH (13:15)
--- NOTE | 2017-08-04 13:32 | AN ---
ANGIOGRAPHY REPORT DATE OF SERVICE: 08/04/2017 PERFORMING PHYSICIAN: Alex Belcher MD, hob mill operator. PROCEDURE PERFORMED: Right lower extremity runoff. INDICATION: This is a pleasant 82-year-old gentleman who is known to have peripheral arterial disease and prior stenting of the right SFA and right popliteal was experiencing right leg discomfort consistent with intermittent claudication. He underwent an arterial duplex study, which showed patent stent in the right SFA, but in view of the persistent symptoms, I decided to pursue with angiogram. APPROACH: Right common femoral artery. COMPLICATION: None. LEVEL OF SEDATION: Moderate with sedation length of 15 minutes. PROCEDURE DESCRIPTION: After obtaining an informed consent, the patient was brought to the cardiac laborer bituminous paving. The right common femoral artery was cannulated using micropuncture technique and a micropuncture wire passed easily then I placed a 4-Uzbek sheath in the right common femoral artery. After that, I did right lower extremity runoff using DSA. The procedure was completed without any complication. SELECTIVE PERIPHERAL ANGIOGRAM: 1. Right common femoral artery appeared to have mild to moderate diffuse disease. 2. Right profunda is angiographically normal. 3. The right SFA is stented and the stent is patent. 4. Right popliteal has severe in-stent restenosis. 5. Below the knee, there is only one vessel runoff below the knee with anterior tibial. CONCLUSION: 1. Severe in-stent restenosis involving the right popliteal at the P1 segment. POSTPROCEDURE MANAGEMENT: The patient will be scheduled to undergo a LOAD BUILDER of the right popliteal from a pedal approach. MMODL / IJN: [id number] /
--- NOTE | 2017-08-04 13:34 | IR ---
EXAMINATION TYPE: IR angio abdominal w runoff DATE OF EXAM: 08/04/2017 COMPARISON: NONE HISTORY: Peripheral vascular occlusive disease. Fluoroscopy was provided to the referring clinician. See dictated report from cardiology.
[2017-08-04 14:02] LABS: Glucose,Whole Blood 136 mg/dL (75-99)
[2017-08-04 14:13] VITALS: RESP 16
[2017-08-04 15:25] VITALS: BP 133/68; PULSE 63; TEMP 97.8
== END 2017-08-04 19:07 | disposition home or self-care (01) ==
LOC: 3OBS 13:00 → CATHCVL 13:00
PROVIDERS: ATTEND Internal Medicine Interventional Cardiology
DX: T82.856A Stenosis of peripheral vascular stent, initial encounter (principal); I70.211 Atherosclerosis of native arteries of extremities with intermittent claudication, right leg; I25.10 Atherosclerotic heart disease of native coronary artery without angina pectoris; I10 Essential (primary) hypertension; E78.5 Hyperlipidemia, unspecified; I70.0 Atherosclerosis of aorta; Z95.1 Presence of aortocoronary bypass graft; Z95.820 Peripheral vascular angioplasty status with implants and grafts; Z82.49 Family history of ischemic heart disease and other diseases of the circulatory system; Z87.891 Personal history of nicotine dependence; Z79.82 Long term (current) use of aspirin; Z79.899 Other long term (current) drug therapy
CPT/HCPCS: 36200; 75710; C1894 ×2; C1769 ×4; J2001; J2250

== ENCOUNTER 2017-09-07 10:47 | Day surgery (SDC) | payer MEDICARE, BC ==
[2017-09-06 08:47] VITALS: BMI 29.8
[~2017-09-07 10:47] MED LIST changes: -ALPRAZolam 0.25 MG TAB PO PRN; -ASPIRIN 325 MG TAB PO STA; -LIDOCAINE 2% INJ 20 MG/ML SQ ONE; -MIDAZOLAM 2 MG/2 ML VIAL IV ONE
[2017-09-07] MEDS ORDERED: ALPRAZolam 0.25 MG TAB ONE (11:17)
[2017-09-07 11:40] LABS: Basophils % (A) 1 %; Eosinophils # (A) 0.1 k/uL (0-0.7); Eosinophils % (A) 2 %; HCT 45.2 % (39.0-53.0); HGB 15.2 gm/dL (13.0-17.5); Lymphocytes # (A) 1.7 k/uL (1.0-4.8); Lymphocytes % (A) 30 %; MCH 30.5 pg (25.0-35.0); MCHC 33.6 g/dL (31.0-37.0); MCV 90.8 fL (80.0-100.0); Mean Platelet Volume 6.9; Monocytes # (A) 0.4 k/uL (0-1.0); Monocytes % (A) 7 %; Neutrophils # (A) 3.3 k/uL (1.3-7.7); Neutrophils % (A) 59 %; Platelet Count 179 k/uL (150-450); RBC 4.98 m/uL (4.30-5.90); RDW 14.2 % (11.5-15.5); WBC 5.6 k/uL (3.8-10.6)
[2017-09-07 11:50] LABS: Calcium 9.8 mg/dL (8.4-10.2); Potassium 4.1 mmol/L (3.5-5.1)
[2017-09-07 11:59] LABS: Glucose,Whole Blood 135 mg/dL (75-99)
[2017-09-07 15:20] LABS: Glucose,Whole Blood 100 mg/dL (75-99)
[2017-09-07] MEDS ORDERED: MIDAZOLAM 2 MG/2 ML VIAL IV ONE (16:05)
[2017-09-07] MEDS ORDERED: LIDOCAINE 2% INJ 20 MG/ML SQ ONE (16:09)
[2017-09-07] MEDS ORDERED: HEPARIN SODIUM 1,000 UN/ML (10ML VL) IV ONE (16:30)
[2017-09-07] MEDS ORDERED: niCARdipine Syringe (1,000 mcg/10 mL) INTRAARTER ONE (16:57)
[2017-09-07] MEDS ORDERED: PROTAMINE SULFATE 10 MG/ML 5 ML VIAL IV ONE (17:10)
[2017-09-07] MEDS ORDERED: IODIXANOL 320 MG/ML 100 ML INTRAARTER ONE (17:11)
[2017-09-07] MEDS ORDERED: LIDOCAINE 5% PATCH TOPICAL PRN (17:16)
[2017-09-07] MEDS ORDERED: HYDROcodone/APAP 7.5-325MG 1 EACH TAB PO PRN (17:16)
[2017-09-07] MEDS ORDERED: AMMONIUM LACTATE 12% LOTION 225 GM BTL TOPICAL PRN (17:16)
[2017-09-07] MEDS ORDERED: SODIUM CHLORIDE 0.9% 1,000 ML IV SCH (17:30)
[2017-09-07] MEDS ORDERED: CLOPIDOGREL 75 MG TAB PO ONE (17:39)
[2017-09-07 18:04] LABS: Glucose,Whole Blood 95 mg/dL (75-99)
--- NOTE | 2017-09-07 18:42 | LTR ---
September 08, 2017. Dear Yobani: Mr. Abdulkadir Burnette underwent successful balloon angioplasty of the right femoral artery with a good angiographic result without any complication. He was experiencing right leg intermittent claudication, seems to be severe enough to interfere with his daily activity. Thank you, Yobani, for for allowing me to participate in his care and please do not hesitate to call if you have any questions or concerns. MMODL / IJN: [id number] /
--- NOTE | 2017-09-07 19:39 | AN ---
ANGIOGRAPHY REPORT DATE OF SERVICE: 09/07/2017 PERFORMING PHYSICIAN: Alex Belcher MD, milk receiver tank truck. PROCEDURES PERFORMED: 1. Selective right [id number] angiogram. 2. Selective right SFA and right popliteal angiogram. 3. Successful balloon angioplasty of the right SFA using 6.0 mm drug coated balloon which was in backed balloon with good angiographic results. INDICATION: This is a pleasant 82-year-old gentleman who is physically active, was experiencing right leg discomfort. He underwent a peripheral angiogram which showed severe in-stent restenosis of the right SFA. He was brought today for to undergo an intervention. APPROACH: Right common femoral artery in antegrade ipsilateral technique. SEDATION: Conscious sedation was performed with 61 minutes. PROCEDURE DESCRIPTION: After obtaining informed consent, the patient was brought to cardiac union laborer. The right common femoral artery was cannulated using micropuncture technique and a micropuncture wire passed easily. Then I placed a 6-Vincentian sheath in the right common femoral artery in antegrade fashion. I did place a 55 cm 6-Vincentian sheath. After that, I did start anticoagulation using heparin and the patient was given weight-based heparin. After that, I did wire the SFA using an 14 wire. After that I did balloon angioplasty initially using a 5 mm AngioSculpt balloon and then I did 6 mm drug coated balloon which was inflated for under 12 atmospheres for 3 minutes. The following angiogram showed good angiographic results and the procedure was completed without any complication. POSTPROCEDURE MANAGEMENT: 1. Dual anti-platelet therapy. 2. Risk factors modifications. 3. Follow up with the patient. MMODL / IJN: [id number] /
[2017-09-07] MEDS: FERROUS SULFATE 325 MG TAB PO SCH (20:03)
[2017-09-07] MEDS: GABAPENTIN 300 MG CAP PO SCH (20:03)
[2017-09-07] MEDS: FAMOTIDINE 20 MG TAB PO SCH (20:03)
[2017-09-07] MEDS ORDERED: ATORVASTATIN 40 MG TAB PO SCH (21:00)
[2017-09-07] MEDS ORDERED: ASPIRIN 81 MG PO SCH (21:00)
[2017-09-07 21:55] LABS: Glucose,Whole Blood 99 mg/dL (75-99)
[2017-09-08 05:51] VITALS: TEMP 97.6
[2017-09-08 05:58] LABS: Glucose,Whole Blood 122 mg/dL (75-99)
[2017-09-08] MEDS: FERROUS SULFATE 325 MG TAB PO SCH (06:02)
[2017-09-08 06:25] LABS: Basophils % (A) 1 %; Eosinophils # (A) 0.1 k/uL (0-0.7); Eosinophils % (A) 2 %; HCT 40.4 % (39.0-53.0); HGB 13.3 gm/dL (13.0-17.5); Lymphocytes # (A) 1.3 k/uL (1.0-4.8); Lymphocytes % (A) 28 %; MCH 30.2 pg (25.0-35.0); MCV 91.7 fL (80.0-100.0); Monocytes # (A) 0.4 k/uL (0-1.0); Monocytes % (A) 8 %; Neutrophils # (A) 2.8 k/uL (1.3-7.7); Neutrophils % (A) 58 %; Platelet Count 141 k/uL (150-450); RBC 4.41 m/uL (4.30-5.90); RDW 14.3 % (11.5-15.5); WBC 4.7 k/uL (3.8-10.6)
[2017-09-08 06:38] LABS: Calcium 9.1 mg/dL (8.4-10.2); Potassium 3.6 mmol/L (3.5-5.1)
[2017-09-08] MEDS ORDERED: PANTOPRAZOLE 40 MG TABLET PO SCH (07:30)
[2017-09-08 08:18] VITALS: BP 121/73; PULSE 62; RESP 16
--- NOTE | 2017-09-08 08:26 | IR ---
Fluoroscopy HISTORY: Peripheral vascular occlusive disease 9.4 minutes fluoroscopy time supplied to the referring clinician. 728 intraoperative C-arm images do cument the procedure. See dictated report from cardiology.
[2017-09-08] MEDS: FAMOTIDINE 20 MG TAB PO SCH (08:48)
[2017-09-08] MEDS: GABAPENTIN 300 MG CAP PO SCH (08:49)
[2017-09-08] MEDS ORDERED: CLOPIDOGREL 75 MG TAB PO SCH (09:00)
[2017-09-08] MEDS ORDERED: LINAGLIPTIN 5 MG TABLET PO SCH (09:00)
[2017-09-08] MEDS ORDERED: ATENOLOL 50 MG TAB PO SCH (09:00)
[2017-09-08] MEDS ORDERED: FUROSEMIDE 40 MG TAB PO SCH (09:00)
[2017-09-08] MEDS ORDERED: POTASSIUM CHLORIDE ER 10 MEQ TAB.ER.PRT PO SCH (09:00)
[2017-09-08] MEDS ORDERED: NON-FORMULARY DRUG (Torsemide [Demadex] 5 MG) PO SCH (09:00)
[2017-09-08] MEDS ORDERED: TAMSULOSIN 0.4 MG CAP.ER.24H PO SCH (09:00)
[2017-09-08] MEDS ORDERED: SILODOSIN 8 MG PO SCH (09:00)
--- NOTE | 2017-09-08 11:29 | DS ---
DISCHARGE SUMMARY ADMISSION DATE: 09/07/2017. DISCHARGE DATE: 09/08/2017 BRIEF HISTORY: This is a pleasant 82-year-old gentleman who was admitted to the hospital yesterday and underwent successful balloon angioplasty of the right SFA which was severely stenotic in-stent. The procedure was performed from the right groin in antegrade fashion. On follow up with the patient today, he is doing good and he is asymptomatic. He is feeling the right foot is warmer. He is going to be discharged home on dual anti-platelet and statin and I will follow up with the patient in a week in the office. MMODL / IJN: [id number] /
[2017-09-08] MEDS ORDERED: CYANOCOBALAMIN 500 MCG TAB PO SCH (12:00)
[2017-09-08] MEDS ORDERED: MULTIVITAMINS, THERA 1 EACH TAB PO SCH (12:00)
[2017-09-08] MEDS ORDERED: CHOLECALCIFEROL 1,000 UNIT TAB PO SCH (12:00)
[2017-09-09] MEDS ORDERED: CALCITRIOL 0.25 MCG CAP PO SCH (12:00)
== END 2017-09-08 11:38 | disposition home or self-care (01) ==
LOC: CATHCVL 10:47 → 6SEL 17:10 → CATHCVL 09-08 11:38
PROVIDERS: ATTEND Internal Medicine Interventional Cardiology
DX: T82.856A Stenosis of peripheral vascular stent, initial encounter (principal); I25.10 Atherosclerotic heart disease of native coronary artery without angina pectoris; I10 Essential (primary) hypertension; Z87.891 Personal history of nicotine dependence; E78.5 Hyperlipidemia, unspecified; Z79.82 Long term (current) use of aspirin; Z79.899 Other long term (current) drug therapy
CPT/HCPCS: 37224; 80048 ×2; 85025 ×2; C1894 ×3; C1725; C1769 ×5; C2623; J2001; J2250; J2720; Q9967; J1644

== ENCOUNTER → 2019-08-24 | Outpatient (CLI) | payer MEDICARE, BC | END | disposition home or self-care (01) | LOC: RADUSWWP 09:33 | PROVIDERS: ATTEND Family Medicine | DX: I73.9 Peripheral vascular disease, unspecified (principal) | CPT/HCPCS: 93922 ==

== ENCOUNTER → 2024-02-20 | Outpatient (CLI) | payer MEDICARE, BC ==
--- NOTE | 2024-03-28 10:25 | US ---
Site ID [facility] Abdulkadir Morfin ID [id number] Age/Gender: 88Y, O Order # N/A Procedure US venous doppler duplex LE LT Date 02/20/2024 2:48:00 PM EXAMINATION TYPE: US venous doppler duplex LE LT DATE OF EXAM: 03/08/2024 1:04 PM COMPARISON: NONE CLINICAL INDICATION: 88 year old with history of left lower extremity swelling. SIDE PERFORMED: Left TECHNIQUE: The lower extremity deep venous system is examined utilizing real time linear array sonog radha with graded compression, doppler sonography and color-flow sonography. Delayed interpretation d ue to institutional cyber attack. VESSELS IMAGED: Common Femoral Vein Deep Femoral Vein Greater Saphenous Vein * Femoral Vein Popliteal Vein Small Saphenous Vein * Proximal Calf Veins (* superficial vessels) Grayscale, color doppler, spectral doppler imaging performed of the deep veins of the left lower extr emity. There is normal flow, compressibility, vascular waveforms. Left Leg: Negative for DVT Results were relayed to patient's office on 02/20/2024 at 3:00 PM. IMPRESSION: No deep venous thrombosis of the left lower extremity.
== END | disposition home or self-care (01) ==
LOC: RADUSWWP 14:29
PROVIDERS: ATTEND Nurse Practitioner Family
DX: R22.40 Localized swelling, mass and lump, unspecified lower limb (principal)